=== PATIENT | female | born 1965 | race Caucasian/White ===

== ENCOUNTER 2018-07-13 10:56 | Emergency (ER) | payer MEDICAID ==
[2018-07-13 11:23] VITALS: BP 145/81
--- NOTE | 2018-07-13 12:16 | EDM.PDOC ---
ED HPI GENERAL MEDICAL PROBLEM - General Chief Complaint: Upper Extremity Injury/Pain Stated Complaint: SWOLLEN LEFT HAND Time Seen by Provider: 07/13/18 11:50 Source of Information: Reports: Patient History Limitations: Reports: No Limitations - History of Present Illness INITIAL COMMENTS - FREE TEXT/NARRATIVE: 53-year-old female was walking on the ice one week ago and slipped banging the back of her left hand and wrist on a mirror outside of a vehicle. It seems to be improving but over the last 48 hours has had increased swelling, and now she is having some numbness and tingling with heaviness radiating up the forearm into her upper arm. No further trauma or falls. Onset: Gradual Duration: Day(s): (Symptoms over 7 days) Location: Reports: Upper Extremity, Left Quality: Reports: Ache, Pressure, Other (Heaviness and paresthesias) Associated Symptoms: Reports: No Other Symptoms Left Lower Wrist Pain Score (Numeric/FACES): 5 - Related Data Allergies Allergy/AdvReac Type Severity Reaction Status Date / Time bleach Allergy Rash Uncoded 07/13/18 11:23 Home Meds: Home Meds Ondansetron [Zofran ODT] 4 mg PO Q6H PRN 07/10/15 [History] SUMAtriptan succinate [Sumatriptan Succinate] 50 mg PO ASDIRECTED PRN 07/10/15 [ History] Ibuprofen 600 mg PO Q6H PRN 07/24/15 [History] Gabapentin 400 mg PO QID 10/24/15 [History] Past Medical History HEENT History: Reports: Allergic Rhinitis, Sinusitis 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: Musculoskeletal History: Reports: Back Pain, Chronic Neurological History: Reports: Migraines Endocrine/Metabolic History: Reports: Obesity/BMI 30+ - Past Surgical History Musculoskeletal Surgical History: Reports: Carpal Tunnel, Other (See Below) Social & Family History - Tobacco Use Smoking Status *Q: Current Every Day Smoker Years of Tobacco use: 38 Packs/Tins Daily: 0.5 Second Hand Smoke Exposure: No - Caffeine Use Caffeine Use: Reports: None - Alcohol Use Days Per Week of Alcohol Use: 3 Number of Drinks Per Day: 3 Total Drinks Per Week: 9 - Recreational Drug Use Recreational Drug Use: No Review of Systems - Review of Systems Review Of Systems: See Below Constitutional: Denies: Fever Respiratory: Denies: Shortness of Breath, Hemoptysis Cardiovascular: Denies: Chest Pain GI/Abdominal: Denies: Abdominal Pain Musculoskeletal: Reports: Shoulder Pain, Arm Pain, Hand Pain Skin: Reports: Bruising (Small amount of bruising on the back of her hand, almost completely resolved) Neurological: Reports: Paresthesia (Tingling of the left arm) ED EXAM, GENERAL - Physical Exam Exam: See Below Exam Limited By: No Limitations General Appearance: Alert, No Apparent Distress Respiratory/Chest: No Respiratory Distress, Lungs Clear Extremities: Other (Exam is otherwise limited to the upper extremities. She has full range of motion without pain of the right arm. She does have full range of motion of left arm but abduction and external rotation is stiff and sore. On palpation her left forearm is tender to palpation with increased pain over the wrist, there is no deformity or crepitus. Grasping is painful but full.) Course - Vital Signs Last Recorded V/S: Last Vital Signs Temp 96.5 F 07/13/18 11:25 Pulse 86 07/13/18 11:25 Resp 16 07/13/18 11:25 BP 145/81 H 07/13/18 11:25 Pulse Ox 97 07/13/18 11:25 - Orders/Labs/Meds Orders: Active Orders 24 hr Category Date Time Status Wrist Comp Min 3V Lt [CR] Stat Exams 07/13/18 11:57 Taken DME for Discharge [COMM] Stat Oth 07/13/18 12:20 Ordered - Re-Assessments/Exams Free Text/Narrative Re-Assessment/Exam: 07/13/18 12:15 An x-ray of the left wrist is obtained. 07/13/18 12:20 Wrist x-ray is normal. Patient was placed in a cockup wrist splint to wear for the next several days to rest the nerves of the wrist and forearm. She can increase activity as tolerated after 2 or 3 days, and recheck if not improving satisfactorily. Departure - Departure Time of Disposition: 12:30 Disposition: Home, Self-Care 01 Condition: Good Clinical Impression: Contusion of wrist, left Qualifiers: Encounter type: initial encounter Qualified Code(s): S60.212A - Contusion of left wrist, initial encounter - Discharge Information Instructions: Contusion, [id number] Referrals: Moctezuma,Leslee M, PA-C [Primary Care Provider] - Forms: ED Department Discharge Care Plan Goals: Wear wrist splint for the next 2 or 3 days to rest the nerves in your left hand and wrist. A regular dose of ibuprofen or naproxen would help. Then increase activity with your wrist and arm as tolerated and recheck with your regular doctor in 5-7 days if not improving satisfactorily. - My Orders Last 24 Hours: My Active Orders 07/13/18 11:57 Wrist Comp Min 3V Lt [CR] Stat 07/13/18 12:20 DME for Discharge [COMM] Stat - Assessment/Plan Last 24 Hours: My Active Orders 07/13/18 11:57 Wrist Comp Min 3V Lt [CR] Stat 07/13/18 12:20 DME for Discharge [COMM] Stat
== END 2018-07-13 12:30 | disposition home or self-care (01) ==
LOC: JP.ED 10:56
DX: S60.212A Contusion of left wrist, initial encounter (principal); E66.9 Obesity, unspecified; F17.210 Nicotine dependence, cigarettes, uncomplicated; Z91.048 Other nonmedicinal substance allergy status; W00.0XXA Fall on same level due to ice and snow, initial encounter
CPT/HCPCS: 73110-LT; 99284

== ENCOUNTER 2019-05-29 07:33 | Day surgery (SDC) | payer MEDICAID ==
[~2019-05-29 07:33] MED LIST: Lidocaine 0.5% 50 ML SDV ONE; Lidocaine 1% with EPINEPHrine 1:100,000 50 ML MDV ONE; Midazolam 1 MG/ML 2 ML SDV ONE; Propofol 200 MG/20 ML SDV ONE; fentaNYL 100 MCG/2 ML SDV ONE
[2019-05-29] MEDS ORDERED: Dextrose 5%-Lactated Ringers 1,000 ML IV SCH (08:45)
[2019-05-29] MEDS ORDERED: ceFAZolin 2 GM in Sodium Chloride 0.9% 50 ML IV ONE (09:15)
[2019-05-29] MEDS ORDERED: Ketorolac 60 MG/2 ML SDV ONE (09:58)
[2019-05-29 11:13] VITALS: PULSE 49
[2019-05-29] MEDS ORDERED: Acetaminophen/HYDROcodone 325-5 MG Tab PO ONE (11:14)
[2019-05-29 11:32] VITALS: BP 146/80
--- NOTE | 2019-06-03 10:13 | OR ---
DATE OF PROCEDURE: 05/29/2019 SURGEON: Victoriano Castillo MD PREOPERATIVE DIAGNOSIS: Left carpal tunnel syndrome. POSTOPERATIVE DIAGNOSES: 1. Left carpal tunnel syndrome. 2. Subfascial lipoma within carpal tunnel. PROCEDURE PERFORMED: 1. Left carpal tunnel release (57806). 2. Excision of lipoma located within the carpal tunnel (70662). ANESTHESIA: IV block plus sedation. CUSTOMER CONTACT SALES ASSOCIATE: Richard Man MS-3. INDICATION FOR PROCEDURE: This is a 54-year-old female presenting with left carpal tunnel syndrome. The plan is to proceed with left carpal tunnel release. Potential risks of the procedure including bleeding, infection, injury to the underlying the median nerve and/or its branches, and possible incomplete relief of symptoms were all reviewed, and the patient wishes to proceed. DETAILS OF PROCEDURE: The patient was taken to the operating room and placed in a supine position. An IV block was placed affecting the left forearm and hand after which the patient received some IV sedation performed and was then prepped and draped. A standard carpal tunnel incision was made and carried down through the skin and subcutaneous tissue. The transverse carpal ligament was then divided maintaining ulnar orientation with regard to the underlying median nerve. This extended on to the palm of the hand until there was complete release of pressure on the median nerve. There was quite a bit of tension on the nerve, and the transverse carpal ligament then retracted considerably upon its division. A 1.2 cm lipoma was located within the carpal tunnel as well. This was excised and at that point no further problems were noted. The incision was closed with 4-0 Vicryl stitch deep and then a 5-0 Prolene skin stitch. Dressing was applied. The patient was taken to the recovery room in satisfactory condition. There were no evident complications. Victoriano Castillo MD /[id number]
== END 2019-05-29 11:50 | disposition home or self-care (01) ==
LOC: JP.SDS 07:33
PROVIDERS: ATTEND Surgery
DX: G56.02 Carpal tunnel syndrome, left upper limb (principal); D17.22 Benign lipomatous neoplasm of skin and subcutaneous tissue of left arm; F17.210 Nicotine dependence, cigarettes, uncomplicated
CPT/HCPCS: 25076; 64721; A9270; J0690; J1885; J2001; J2250; J2704; J3010; J7042; J7050; 88304; J7121

== ENCOUNTER 2020-03-13 19:51 | Emergency (ER) | payer MEDICAID ==
[2020-03-13] MEDS ORDERED: Sodium Chloride 0.9% 10 ML Syringe FLUSH PRN (19:52)
[2020-03-13] MEDS ORDERED: Aspirin 81 MG Tab.Chew PO ONE (19:52)
[2020-03-13] MEDS ORDERED: Nitroglycerin 0.4 MG Tab.SL SL PRN (19:52)
--- NOTE | 2020-03-13 19:54 | EDM.PDOC ---
ED HPI GENERAL MEDICAL PROBLEM - General Stated Complaint: CHEST PAINS Time Seen by Provider: 03/13/20 19:52 Source of Information: Reports: Patient, RN Notes Reviewed History Limitations: Reports: No Limitations - History of Present Illness INITIAL COMMENTS - FREE TEXT/NARRATIVE: 55-year-old female presents emergency department today complaint of right-sided chest pain she states started 1 hour prior she is very diaphoretic she feels short of breath with new onset of nausea and vomiting she has no known heart history does use tobacco products daily - Related Data Allergies Allergy/AdvReac Type Severity Reaction Status Date / Time bleach Allergy Rash Uncoded 03/13/20 19:53 Home Meds: Home Meds SUMAtriptan succinate [Sumatriptan Succinate] 50 mg PO ASDIRECTED PRN 07/10/15 [History] Gabapentin 300 mg PO TID 10/24/15 [History] Acetaminop/Dichlphn/Isomethept [Midrin 325-100-65 MG] 1 cap PO Q4H PRN 05/27/19 [History] Celecoxib [CeleBREX] 200 mg PO BID 05/27/19 [History] Clindamycin Phosphate [Cleocin T 1% Lotion] 1 applic TOP BID 05/27/19 [History] Past Medical History HEENT History: Reports: Allergic Rhinitis, Sinusitis 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: Musculoskeletal History: Reports: Back Pain, Chronic, Fracture Neurological History: Reports: Migraines Endocrine/Metabolic History: Reports: Obesity/BMI 30+ - Infectious Disease History Infectious Disease History: Reports: Chicken Pox - Past Surgical History HEENT Surgical History: Reports: None Endocrine Surgical History: Reports: None Neurological Surgical History: Reports: Lumbar Spine Musculoskeletal Surgical History: Reports: Carpal Tunnel, Other (See Below) Social & Family History - Tobacco Use Smoking Status *Q: Current Every Day Smoker - Caffeine Use Caffeine Use: Reports: None ED ROS GENERAL - Review of Systems Review Of Systems: See Below Constitutional: Reports: Diaphoresis HEENT: Reports: No Symptoms Respiratory: Reports: Shortness of Breath Cardiovascular: Reports: Chest Pain, Dyspnea on Exertion GI/Abdominal: Reports: Nausea, Vomiting ED EXAM, GENERAL - Physical Exam Exam: See Below Exam Limited By: No Limitations General Appearance: Alert, Mild Distress Respiratory/Chest: No Respiratory Distress, Lungs Clear, Normal Breath Sounds, No Accessory Muscle Use, Chest Non-Tender Cardiovascular: Regular Rate, Rhythm, No Murmur GI/Abdominal: Soft, Non-Tender Course - Orders/Labs/Meds Orders: Active Orders 24 hr Category Date Time Status Cardiac Monitoring [RC] .As Directed Care 03/13/20 19:52 Active EKG Documentation Completion [RC] ASDIRECTED Care 03/13/20 19:53 Active Peripheral IV Care [RC] . DIRECTED Care 03/13/20 19:53 Active Chest 1V Frontal [CR] Stat Exams 03/13/20 19:52 Ordered COMPREHENSIVE METABOLIC PN,CMP [CHEM] Stat Lab 03/13/20 19:58 Received INR,PT,PROTHROMBIN TIME [COAG] Stat Lab 03/13/20 19:58 Received PTT,PARTIAL THROMBOPLSTIN TIME [COAG] Stat Lab 03/13/20 19:58 Received TROPONIN I [CHEM] Stat Lab 03/13/20 19:58 Received Morphine Med 03/13/20 19:52 Active 4 mg IVPUSH Q10M PRN Nitroglycerin [Nitrostat] Med 03/13/20 19:52 Active 0.4 mg SL Q5M PRN Sodium Chloride 0.9% [Saline Flush] Med 03/13/20 19:52 Active 10 ml FLUSH ASDIRECTED PRN Peripheral IV Insertion Adult [OM.PC] Stat Oth 03/13/20 19:52 Ordered Saline Lock Insert [OM.PC] Stat Oth 03/13/20 19:52 Ordered EKG 12 Lead [EK] Stat Ther 03/13/20 19:52 Ordered Medication Orders Morphine Sulfate (Morphine) 4 mg IVPUSH Q10M PRN PRN Reason: Chest Pain Stop: 03/14/20 19:52 Last Admin: 03/13/20 20:07 Dose: 4 mg Documented by: GREG Nitroglycerin (Nitrostat) 0.4 mg SL Q5M PRN PRN Reason: Chest Pain Stop: 03/14/20 19:52 Sodium Chloride (Saline Flush) 10 ml FLUSH ASDIRECTED PRN PRN Reason: Keep Vein Open Last Admin: 03/13/20 20:08 Dose: 10 ml Documented by: GREG Labs: Laboratory Tests 03/13/20 Range/Units 19:58 WBC 14.6 H (4.5-11.0) K/uL RBC 4.28 (3.30-5.50) M/uL Hgb 12.9 D (12.0-15.0) g/dL Hct 38.6 (36.0-48.0) % MCV 90 (80-98) fL MCH 30 (27-31) pg MCHC 33 (32-36) % Plt Count 269 (150-400) K/uL Neut % (Auto) 43 (36-66) % Lymph % (Auto) 51 H (24-44) % [facility] % (Auto) 5 (2-6) % Eos % (Auto) 1 L (2-4) % Baso % (Auto) 0 (0-1) % Meds: Medications Generic Name Dose Route Start Last Admin Trade Name Freq PRN Reason Stop Dose Admin Morphine Sulfate 4 mg 03/13/20 19:52 03/13/20 20:07 Morphine IVPUSH 03/14/20 19:52 4 mg Q10M PRN Administration Chest Pain Nitroglycerin 0.4 mg 03/13/20 19:52 Nitrostat SL 03/14/20 19:52 Q5M PRN Chest Pain Sodium Chloride 10 ml 03/13/20 19:52 03/13/20 20:08 Saline Flush FLUSH 10 ml ASDIRECTED PRN Administration Keep Vein Open Discontinued Medications Generic Name Dose Route Start Last Admin Trade Name Freq PRN Reason Stop Dose Admin Aspirin 324 mg 03/13/20 19:52 03/13/20 20:05 Aspirin PO 03/13/20 19:53 324 mg ONETIME ONE Administration Ondansetron HCl Confirm 03/13/20 20:00 Zofran Administered 03/13/20 20:01 Dose 4 mg .ROUTE .STK-MED ONE Ondansetron HCl 4 mg 03/13/20 20:01 03/13/20 20:08 Zofran IVPUSH 03/13/20 20:02 4 mg ONETIME ONE Administration Departure - Departure Time of Disposition: 20:12 Disposition: DC/Tfer to Acute Hospital 02 Reason for Transfer *Q: Primary PCI Indicated Condition: Fair Clinical Impression: ST elevation myocardial infarction (STEMI) of inferior wall Referrals: PCP,None [Primary Care Provider] - - My Orders Last 24 Hours: My Active Orders 03/13/20 19:52 Cardiac Monitoring [RC] .As Directed Chest 1V Frontal [CR] Stat Morphine 4 mg IVPUSH Q10M PRN Nitroglycerin [Nitrostat] 0.4 mg SL Q5M PRN Sodium Chloride 0.9% [Saline Flush] 10 ml FLUSH ASDIRECTED PRN Peripheral IV Insertion Adult [OM.PC] Stat Saline Lock Insert [OM.PC] Stat EKG 12 Lead [EK] Stat 03/13/20 19:53 EKG Documentation Completion [RC] ASDIRECTED Peripheral IV Care [RC] . DIRECTED 03/13/20 19:58 COMPREHENSIVE METABOLIC PN,CMP [CHEM] Stat INR,PT,PROTHROMBIN TIME [COAG] Stat PTT,PARTIAL THROMBOPLSTIN TIME [COAG] Stat TROPONIN I [CHEM] Stat - Assessment/Plan Last 24 Hours: My Active Orders 03/13/20 19:52 Cardiac Monitoring [RC] .As Directed Chest 1V Frontal [CR] Stat Morphine 4 mg IVPUSH Q10M PRN Nitroglycerin [Nitrostat] 0.4 mg SL Q5M PRN Sodium Chloride 0.9% [Saline Flush] 10 ml FLUSH ASDIRECTED PRN Peripheral IV Insertion Adult [OM.PC] Stat Saline Lock Insert [OM.PC] Stat EKG 12 Lead [EK] Stat 03/13/20 19:53 EKG Documentation Completion [RC] ASDIRECTED Peripheral IV Care [RC] . DIRECTED 03/13/20 19:58 COMPREHENSIVE METABOLIC PN,CMP [CHEM] Stat INR,PT,PROTHROMBIN TIME [COAG] Stat PTT,PARTIAL THROMBOPLSTIN TIME [COAG] Stat TROPONIN I [CHEM] Stat Plan: Assessment Acuity = acute Site and laterality = ST elevation myocardial infarction inferior leads Etiology = probable underlying coronary artery disease Manifestations = none Location of injury = Home Lab values = EKG demonstrates ST elevations in leads II, III and aVF with reciprocal depressions in V1 V2 lab work is pending Plan Thus far she has received 4000 unit bolus of heparin 180 mg Brilinta 325 mg aspirin 4 mg morphine no nitro was provided she will be transported via EMS ground, did receive acceptance from Dr. Vo marine driller [facility], will be transferred with a heparin drip in route This note was dictated using [employer] voice recognition software please call with any questions on syntax or grammar.
[2020-03-13] MEDS ORDERED: Ondansetron 4 MG/2 ML SDV ONE (20:00)
[2020-03-13] MEDS ORDERED: Ondansetron 4 MG/2 ML SDV IVPUSH ONE (20:01)
[2020-03-13] MEDS: Morphine 4 MG/ML Syringe IVPUSH PRN ×2 (20:07→20:12)
[2020-03-13] MEDS ORDERED: Heparin Sodium 5,000 Units/ML Vial IVPUSH ONE (20:14)
[2020-03-13] MEDS ORDERED: Ticagrelor 90 MG Tab PO ONE (20:14)
[2020-03-13] MEDS ORDERED: Sodium Chloride 0.9% 1,000 ML IV SCH (20:15)
[2020-03-13] MEDS ORDERED: fentaNYL 100 MCG/2 ML SDV IVPUSH ONE (20:15)
[2020-03-13] MEDS ORDERED: Heparin Sodium/D5W 25,000 UNITS/500 ML BAG IV SCH (20:15)
[2020-03-13] MEDS ORDERED: Heparin Sodium/D5W 500 ML ONE (20:19)
[2020-03-13 21:05] VITALS: BP 129/104
[2020-03-13 23:35] VITALS: PULSE 82
== END 2020-03-13 20:30 ==
LOC: JP.ED 19:51
DX: I21.19 ST elevation (STEMI) myocardial infarction involving other coronary artery of inferior wall (principal); E66.9 Obesity, unspecified; Z68.32 Body mass index [BMI] 32.0-32.9, adult; F17.200 Nicotine dependence, unspecified, uncomplicated; Z79.899 Other long term (current) drug therapy; Z91.048 Other nonmedicinal substance allergy status
CPT/HCPCS: 36415; 80053; 84484; 85025; 85610; 85730; 93005; 93010; 96374; 96375; 99285; A9270; J1644; J2270; J2405; J3010; J7030

== ENCOUNTER 2020-05-10 10:37 | Emergency (ER) | payer MEDICAID ==
[2020-05-10 10:53] VITALS: BP 155/78; PULSE 68
--- NOTE | 2020-05-10 12:01 | EDM.PDOC ---
ED HPI GENERAL MEDICAL PROBLEM - General Chief Complaint: Respiratory Problem Stated Complaint: SOB Time Seen by Provider: 05/10/20 11:45 Source of Information: Reports: Patient History Limitations: Reports: No Limitations - History of Present Illness INITIAL COMMENTS - FREE TEXT/NARRATIVE: 55-year-old female who had an KS 2 months ago, since her discharge has had persistent shortness of breath. It seems worse with activity. She thought she should be improving by now, so called the clinic for assessment and they told her to come to the emergency room because she "might have Covid". She has no fevers or chills, mild dry cough. Denies nausea or vomiting. Onset: Gradual Duration: Week(s): (Symptoms have been ongoing for the last 6 to 8 weeks since her treatment for myocardial infarction) - Related Data Allergies Allergy/AdvReac Type Severity Reaction Status Date / Time bleach Allergy Rash Uncoded 05/10/20 11:00 Home Meds: Home Meds SUMAtriptan succinate [Sumatriptan Succinate] 50 mg PO ASDIRECTED PRN 07/10/15 [History] Gabapentin 300 mg PO TID 10/24/15 [History] Acetaminop/Dichlphn/Isomethept [Midrin 325-100-65 MG] 1 cap PO Q4H PRN 05/27/19 [History] Clindamycin Phosphate [Cleocin T 1% Lotion] 1 applic TOP BID 05/27/19 [History] Aspirin 81 mg PO DAILY 05/10/20 [History] Metoprolol Succinate [Toprol XL] 25 mg PO DAILY 05/10/20 [History] Pantoprazole Sodium [Protonix] 40 mg PO DAILY 05/10/20 [History] Ticagrelor [Brilinta] 90 mg PO DAILY 05/10/20 [History] atorvaSTATin [Lipitor] 80 mg PO BEDTIME 05/10/20 [History] lisinopriL [Prinivil] 2.5 mg PO DAILY 05/10/20 [History] tiZANidine 2 mg PO BID PRN 05/10/20 [History] Past Medical History HEENT History: Reports: Allergic Rhinitis, Sinusitis Cardiovascular History: Reports: High Cholesterol, Hypertension, [place]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: Musculoskeletal History: Reports: Back Pain, Chronic, Fracture Neurological History: Reports: Migraines Endocrine/Metabolic History: Reports: Obesity/BMI 30+ - Infectious Disease History Infectious Disease History: Reports: Chicken Pox - Past Surgical History Cardiovascular Surgical History: Reports: Coronary Artery Stent Neurological Surgical History: Reports: Lumbar Spine Musculoskeletal Surgical History: Reports: Carpal Tunnel, Other (See Below) Other Musculoskeletal Surgeries/Procedures:: right carpal tunnel Social & Family History - Tobacco Use Tobacco Use Status *Q: Current Every Day Tobacco User Years of Tobacco use: 40 Packs/Tins Daily: 0.2 - Caffeine Use Caffeine Use: Reports: None - Recreational Drug Use Recreational Drug Use: No ED ROS GENERAL - Review of Systems Review Of Systems: See Below Constitutional: Reports: Malaise. Denies: Fever, Chills Respiratory: Reports: Shortness of Breath (Especially with activity) Cardiovascular: Denies: Chest Pain GI/Abdominal: Reports: No Symptoms Musculoskeletal: Reports: No Symptoms Skin: Reports: No Symptoms Neurological: Denies: Headache ED EXAM, GENERAL - Physical Exam Exam: See Below Exam Limited By: No Limitations General Appearance: Alert, No Apparent Distress Head: Atraumatic Respiratory/Chest: No Respiratory Distress, Other (She does have basilar crackles bilaterally posteriorly, otherwise lungs are clear) Cardiovascular: Regular Rate, Rhythm Extremities: Normal Inspection. No: Pedal Edema Neurological: Alert, Oriented Psychiatric: Normal Affect, Normal Mood Skin Exam: Warm, Dry Course - Vital Signs Last Recorded V/S: Last Vital Signs Temp 96.7 F L 05/10/20 11:09 Pulse 68 05/10/20 11:09 Resp 18 05/10/20 11:09 BP 155/78 H 05/10/20 11:09 Pulse Ox 99 05/10/20 11:09 - Orders/Labs/Meds Orders: Active Orders 24 hr Category Date Time Status CORONAVIRUS COVID-19, VANESSA Stat Lab 05/10/20 12:08 Received - Re-Assessments/Exams Free Text/Narrative Re-Assessment/Exam: 05/10/20 12:00 A 2 view chest x-ray was obtained. Breathing is nonlabored and O2 saturations 99% on room air. 05/10/20 12:09 2 view chest x-ray is normal. A coronavirus was obtained and patient will be informed in 2 to 3 days. She was also given an albuterol HFA inhaler to use as needed for shortness of breath or wheezing which she thinks is worse at night. She can recheck in the next 5 to 10 days if not improving. Departure - Departure Time of Disposition: 12:35 Disposition: Home, Self-Care 01 Clinical Impression: Shortness of breath - Discharge Information Instructions: Shortness of Breath, Adult, [id number] Referrals: Leslee Moctezuma PA-C [Primary Care Provider] - Forms: ED Department Discharge Care Plan Goals: Your Covid test will be available in the next couple of days. Use inhaler as directed, and increase activity as tolerated. Continue to try to decrease smoking, and return anytime if worsening despite inhaler treatment Sepsis Event Note (ED) - Evaluation Sepsis Screening Result: No Definite Risk - Focused Exam Vital Signs: Vital Signs Temp Pulse Resp BP Pulse Ox 05/10/20 11:09 96.7 F L 68 18 155/78 H 99 05/10/20 10:50 96.7 F L 68 18 155/78 H 99 - My Orders Last 24 Hours: My Active Orders 05/10/20 12:08 CORONAVIRUS COVID-19, VANESSA Stat - Assessment/Plan Last 24 Hours: My Active Orders 05/10/20 12:08 CORONAVIRUS COVID-19, VANESSA Stat
--- NOTE | 2020-05-10 12:50 | CR ---
CHEST: 2 view CLINICAL HISTORY:Dyspnea COMPARISON:None FINDINGS: The heart size, pulmonary vascularity and hilar structures are normal. No infiltrate effusion or pneumothorax is seen. IMPRESSION: No acute cardiopulmonary process.
== END 2020-05-10 12:35 | disposition home or self-care (01) ==
LOC: JP.ED 10:37
DX: R06.02 Shortness of breath (principal); I10 Essential (primary) hypertension; E78.00 Pure hypercholesterolemia, unspecified; I25.2 Old myocardial infarction; E66.9 Obesity, unspecified; G43.909 Migraine, unspecified, not intractable, without status migrainosus; F17.210 Nicotine dependence, cigarettes, uncomplicated; Z95.5 Presence of coronary angioplasty implant and graft; Z91.09 Other allergy status, other than to drugs and biological substances; Z79.82 Long term (current) use of aspirin; Z79.899 Other long term (current) drug therapy; Z68.33 Body mass index [BMI] 33.0-33.9, adult; Z20.828 Contact with and (suspected) exposure to other viral communicable diseases
CPT/HCPCS: 71046; 71046-26; 99285-25; U0002

== ENCOUNTER 2020-08-05 05:22 | Day surgery (SDC) | payer MEDICAID ==
[2020-08-05] MEDS ORDERED: Propofol 200 MG/20 ML SDV ONE ×2 (07:09→07:27)
[2020-08-05] MEDS ORDERED: Midazolam 1 MG/ML 2 ML SDV ONE (07:09)
[2020-08-05] MEDS ORDERED: fentaNYL 100 MCG/2 ML SDV ONE (07:09)
[2020-08-05] MEDS ORDERED: Dextrose 5%-Lactated Ringers 1,000 ML IV SCH (08:30)
[2020-08-05 08:36] VITALS: BP 133/77; PULSE 53
[2020-08-05] MEDS ORDERED: Iopamidol 612 MG/ML 100 ML Bottle IV PRN (08:51)
[2020-08-05] MEDS ORDERED: Sodium Chloride 0.9% 10 ML Syringe FLUSH PRN (08:51)
[2020-08-05] MEDS ORDERED: Sodium Chloride 0.9% 75 ML IV ONE (08:51)
--- NOTE | 2020-08-05 11:39 | CT ---
Chest Abdomen Pelvis w Cont CLINICAL HISTORY: Rectal carcinoma TECHNIQUE: Transverse scans were obtained from the thoracic inlet to the lung bases with IV contrast. Auto dose reduction and iterative reconstruction techniques were employed COMPARISONS: None FINDINGS: Lung window images show numerous small noncalcified pulmonary nodules bilaterally most notable in the right lung. Largest in the upper lobe measures 5 and 6 mm on images #23 and #24. Soft tissue window images show some lymph nodes in the mediastinum. Largest in the aortopulmonary window measures [address] ABDOMEN AND PEVIS WITH IV CONTRAST COMPARISON: None TECHNIQUE: Axial tomographic images are obtained from the dome of the diaphragm to the iliac crest with IV contrast enhancement. Oral contrast was used. FINDINGS: The livercontains a 2.5 x 3.3 x 3.0 cm low-attenuation nodule with some irregular predominantly peripheral enhancement. There is a vague nodular focus in the posterior segment of the right lobe measuring 1.9 x 1.9 cm. There is also the impression of some peripheral enhancement. The gallbladder has a normal contour. The spleen has a normal size and shape. The pancreas shows no mass or inflammatory change. The adrenal glands appear normal bilaterally. There is a 2.5 cm well demarcated low-attenuation lesion in the medial aspect of the right kidney. Density measurement is nonspecific and postcontrast scan. As the 1.8 x 1.2 cm low-attenuation focus in the midpole of the left kidney likely of similar etiology. No stones are seen. The ureters have a normal course and caliber. The bladder has a normal contour. There is a 5.2 x 4.5 x 4.6 cm heterogeneous eccentric low-attenuation mass on the upper uterus. This is felt to represent a subserosal fibroid. There is a 2.7 x 1.8 cm low-attenuation focus contiguous with the right adnexal region. There is some soft tissue fullness measuring approximately 2.7 cm contiguous with both the left lateral margin of the uterus and adnexa region. This could be a hemorrhagic cyst or possibly a another fibroid. The small intestinal configuration is nonacute. There is some colonic diverticulosis. Patient has undergone recent colonoscopy were cancerous lesion was discovered in the rectum just above the renal virtual. This is not definitively identified on CT. The perirectal fat planes appear well preserved. There has been previous lower lumbar laminectomies with fixation from L4 through S1. IMPRESSION: Multiple small noncalcified pulmonary nodules right greater than left. Considering the patient's history of rectal carcinoma metastatic nodules cannot be excluded. These are too small to be reliably identified on PET scan. Two heterogeneous hypodense nodules in the liver described above. There appears to be some peripheral enhancement. These may represent hepatic hemangiomas but again, considering the history metastatic lesions are not excluded and further investigation is warranted. Ultrasound should be considered first. MRI or CT using hemangioma protocol should also be performed. Nodular foci contiguous to the uterus are felt to represent subserosal fibroids. This should also be correlated with pelvic ultrasound Previous lumbar surgery
--- NOTE | 2020-08-14 15:13 | OR ---
DATE OF PROCEDURE: 08/05/2020 SURGEON: Victoriano Castillo MD PREOPERATIVE DIAGNOSIS: Recent rectal bleeding. POSTOPERATIVE DIAGNOSES: 1. 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 2. Left colonic diverticulosis. OPERATIVE PROCEDURE: Flexible colonoscopy with biopsies of rectal mass. ANESTHESIA: IV sedation. INDICATION FOR PROCEDURE: This is a 55-year-old presenting with some recent problems with rectal bleeding. The plan is to do proceed with a colonoscopy with biopsies and a polypectomy as indicated. Potential risks of the procedure including bleeding and perforation were discussed, and the patient wishes to proceed. DETAILS OF PROCEDURE: The patient was taken to the operating room and placed in a left lateral decubitus position. IV sedation was administered, after which the initial digital rectal exam identified a firm mass, this measured about 4 cm and with a flat polypoid lesion, which was completely sessile, it had quite friable surface. It appeared to be not mobile within the mucosa i.e. had features suggestive of fixation to more invasion into the underlying musculature. No active bleeding was seen from the mass. The lower end of the mass extended within around 2 mm of the dentate line i.e. more or less the anal canal. The location otherwise would be suggestive this being a rectal adenocarcinoma versus an anal canal tumor, but histology will be awaited for that final conclusion. The scope was then eventually passed to the level of the cecum. The prep was quite good. Apart from the low rectal carcinoma, the patient had a limited amount of left uncomplicated diverticulosis. Remainder of the examination was unremarkable. The prep was very good. The scope was then withdrawn. At that point, multiple biopsies were taken from the rectal mass and sent for histologic evaluation, but no bleeding from the biopsy sites was seen, and the procedure then concluded. At this point, we will begin the patient to work up with a CBC, CMP, baseline BNP, and a CEA. We will also then obtain a CT scan of the chest, abdomen, and pelvis with IV contrast; and on Saturday and Saturday of next week, obtain an MRI of the abdomen and pelvis. The abdominal MRI could be done here at [facility], which is the nearest place for an appropriate staging MRI for rectal mass. Could only do the pelvis on Saturday, that will be scheduled there, and we will see the patient back on Saturday to put things into an overall package and likely set it up for Medical Oncology at that point. Based on the patient's likelihood of this being an adenocarcinoma and the probable fixation of the muscle. This is clinically most likely at least 2 to 3 lesions despite being relatively small in overall size, and the case would require preoperative neoadjuvant chemoradiation, and despite that we would most likely eventually need an abdominoperineal resection due to the very low nature of the lesion. Victoriano Castillo MD /[id number]
== END 2020-08-05 10:45 | disposition home or self-care (01) ==
LOC: JP.SDS 05:22
PROVIDERS: ATTEND Surgery
DX: C20 Malignant neoplasm of rectum (principal); K57.31 Diverticulosis of large intestine without perforation or abscess with bleeding; I25.10 Atherosclerotic heart disease of native coronary artery without angina pectoris; Z91.048 Other nonmedicinal substance allergy status; Z95.5 Presence of coronary angioplasty implant and graft
CPT/HCPCS: 36415; 45380; 71260; 74177; 80053; 82378; 83880; 85027; 88305; J2250; J2704; J3010; J7121; Q9967

== ENCOUNTER 2020-12-21 11:46 | Inpatient (IN) | payer MEDICAID ==
[~2020-12-21 11:46] MED LIST changes: +Albuterol/Ipratropium 3.0-0.5 MG/3 ML Neb Soln NEB ONE; +Bupivacaine 0.5% 50 ML MDV ONE; +Dexamethasone 4 MG/ML SDV ONE; +Dextrose 5%-Lactated Ringers 1,000 ML IV SCH; +Gabapentin 300 MG Cap PO ONE; +Glycopyrrolate 0.2 MG/ML 5 ML MDV ONE; -Lidocaine 0.5% 50 ML SDV ONE; +Meropenem 500 MG SDV ONE; -Midazolam 1 MG/ML 2 ML SDV ONE; +Naloxone 0.4 MG/ML SDV IVPUSH PRN; +Neostigmine Methylsulfate 1 MG/ML 5 ML Syringe ONE; +Ondansetron 4 MG/2 ML SDV ONE; +Rocuronium 50 MG/5 ML Vial ONE; +Scopolamine 1.5 MG Transdermal Patch TOP ONE; +Succinylcholine 200 MG/10 ML MDV ONE; +cefOXitin 2 GM in Sodium Chloride 0.9% 50 ML IV ONE; -fentaNYL 100 MCG/2 ML SDV ONE; +fentaNYL 2,500 MCG in Sodium Chloride 0.9% 200 ML EPIDUR SCH; +fentaNYL 250 MCG/5 ML SDV ONE
[2020-12-21] MEDS ORDERED: Naloxone 0.4 MG/ML SDV IVPUSH PRN (12:00)
[2020-12-21] MEDS ORDERED: fentaNYL 2,500 MCG in Sodium Chloride 0.9% 200 ML EPIDUR SCH (12:00)
[2020-12-21] MEDS ORDERED: Scopolamine 1.5 MG Transdermal Patch TOP SCH (12:45)
[2020-12-21] MEDS ORDERED: Gabapentin 300 MG Cap PO ONE (12:45)
[2020-12-21] MEDS: Dextrose 5%-Lactated Ringers 1,000 ML IV SCH (13:05)
[2020-12-21] MEDS ORDERED: Albuterol/Ipratropium 3.0-0.5 MG/3 ML Neb Soln NEB ONE (13:30)
[2020-12-21] MEDS ORDERED: Formoterol/Mometasone 100-5 MCG 8.8 GM Inhaler IH ONE (13:30)
[2020-12-21] MEDS ORDERED: cefOXitin 2 GM in Sodium Chloride 0.9% 50 ML IV ONE (14:00)
[2020-12-21] MEDS ORDERED: Sodium Chloride 0.9% 10 ML ONE (14:02)
[2020-12-21] MEDS ORDERED: Rocuronium 50 MG/5 ML Vial ONE ×2 (14:14→17:09)
[2020-12-21] MEDS ORDERED: Lactated Ringers 1,000 ML ONE ×3 (14:41→17:46)
[2020-12-21] MEDS ORDERED: Fluorescein 5 ML Vial ONE (15:44)
[2020-12-21] MEDS ORDERED: fentaNYL 250 MCG/5 ML SDV ONE (15:57)
[2020-12-21] MEDS ORDERED: Meropenem 500 MG SDV ONE (16:42)
[2020-12-21] MEDS ORDERED: Furosemide 20 MG/2 ML VIAL ONE (16:53)
[2020-12-21] MEDS ORDERED: fentaNYL 100 MCG/2 ML SDV ONE (18:14)
[2020-12-21] MEDS ORDERED: Albuterol/Ipratropium 3.0-0.5 MG/3 ML Neb Soln INH PRN (19:33)
[2020-12-21] MEDS ORDERED: Nitroglycerin 0.4 MG Tab.SL SL PRN (19:43)
[2020-12-21] MEDS: Pantoprazole 40 MG Vial IVPUSH SCH (19:54)
[2020-12-21] MEDS: cefOXitin 2 GM in Sodium Chloride 0.9% 50 ML IV SCH (19:55)
[2020-12-21] MEDS ORDERED: Cyclobenzaprine 10 MG Tab PO PRN (20:00)
[2020-12-21] MEDS ORDERED: hydrOXYzine HCL 100 MG/2 ML SDV IM PRN (20:00)
[2020-12-21] MEDS: Gabapentin 300 MG Cap PO SCH (20:42)
[2020-12-21] MEDS ORDERED: Lisinopril 5 MG Tab ONE (20:47)
[2020-12-21] MEDS ORDERED: Formoterol/Mometasone 100-5 MCG 8.8 GM Inhaler IH SCH (21:00)
[2020-12-21] MEDS: Albuterol/Ipratropium 3.0-0.5 MG/3 ML Neb Soln INH SCH (22:12)
[2020-12-21] MEDS: traZODone 50 MG Tab PO SCH (22:12)
[2020-12-21] MEDS: Lisinopril 2.5 MG Tab PO SCH (22:12)
[2020-12-21] MEDS: Lactated Ringers 1,000 ML IV SCH (23:19)
[2020-12-22] MEDS: cefOXitin 2 GM in Sodium Chloride 0.9% 50 ML IV SCH ×4 (02:20→21:19)
[2020-12-22] MEDS: Ondansetron 4 MG/2 ML SDV IVPUSH PRN (06:27)
[2020-12-22] MEDS ORDERED: Lactated Ringers 1,000 ML IV ONE ×2 (07:00→07:15)
[2020-12-22] MEDS: Albuterol/Ipratropium 3.0-0.5 MG/3 ML Neb Soln INH SCH ×4 (07:05→20:54)
[2020-12-22] MEDS: Formoterol/Mometasone 100-5 MCG 8.8 GM Inhaler IH SCH ×2 (07:33→20:48)
[2020-12-22] MEDS ORDERED: diphenhydrAMINE 50 MG/ML SDV IVPUSH PRN (08:00)
[2020-12-22] MEDS ORDERED: Naloxone 0.4 MG/ML SDV IV PRN (08:00)
[2020-12-22] MEDS: Gabapentin 300 MG Cap PO SCH ×3 (08:25→20:49)
[2020-12-22] MEDS: Metoprolol Succinate 25 MG Tab.ER PO SCH (08:25)
[2020-12-22] MEDS: Magnesium Sulfate/Water 2 GM/50 ML BAG IV SCH ×3 (08:26→19:00)
[2020-12-22] MEDS: Lactated Ringers 1,000 ML IV SCH (10:36)
[2020-12-22] MEDS: Dextrose 5%-Lactated Ringers 1,000 ML IV SCH (16:33)
[2020-12-22] MEDS: atorvaSTATin 20 MG Tab PO SCH (20:50)
[2020-12-22] MEDS: Pantoprazole 40 MG Vial IVPUSH SCH (21:15)
[2020-12-22] MEDS: Lisinopril 2.5 MG Tab PO SCH ×2 (21:16→21:23)
[2020-12-22] MEDS: traZODone 50 MG Tab PO SCH (21:24)
[2020-12-23] MEDS: Magnesium Sulfate/Water 2 GM/50 ML BAG IV SCH ×2 (00:30→06:30)
[2020-12-23] MEDS: Dextrose 5%-Lactated Ringers 1,000 ML IV SCH (02:37)
[2020-12-23] MEDS: Lactated Ringers 1,000 ML IV SCH ×3 (02:37→21:28)
[2020-12-23] MEDS: cefOXitin 2 GM in Sodium Chloride 0.9% 50 ML IV SCH ×3 (02:37→13:46)
[2020-12-23] MEDS: Albuterol/Ipratropium 3.0-0.5 MG/3 ML Neb Soln INH SCH ×4 (07:06→20:26)
[2020-12-23] MEDS: Formoterol/Mometasone 100-5 MCG 8.8 GM Inhaler IH SCH ×2 (07:06→20:25)
[2020-12-23] MEDS ORDERED: Bupivacaine 0.5% 50 ML MDV ONE (07:47)
[2020-12-23] MEDS ORDERED: Lidocaine 1% with EPINEPHrine 1:100,000 50 ML MDV ONE (07:47)
[2020-12-23] MEDS ORDERED: Meropenem 500 MG SDV ONE (07:47)
[2020-12-23] MEDS ORDERED: Propofol 200 MG/20 ML SDV ONE ×2 (09:00→09:23)
[2020-12-23] MEDS: Metoprolol Succinate 25 MG Tab.ER PO SCH (10:10)
[2020-12-23] MEDS: Acetaminophen/HYDROcodone 325-5 MG Tab PO PRN ×3 (11:10→15:48)
[2020-12-23] MEDS: Gabapentin 300 MG Cap PO SCH ×3 (11:11→20:26)
--- NOTE | 2020-12-23 11:31 | PCM.CONS ---
H&P History of Present Illness - General Date of Service: 12/23/20 Admit Problem/Dx: Admission Diagnosis/Problem Admission Diagnosis/Problem Colostomy Source of Information: Patient, RN History Limitations: Reports: No Limitations - History of Present Illness Initial Comments - Free Text/Narative: CC: I'm hungry but I want to puke HPI: Carey was admitted a couple of days ago for surgical management of a low rectal carcinoma. She underwent resection of this cancer along with a total abdominal hysterectomy and had a colostomy formed. She had a delayed primary closure today. I was asked to see her regarding medical management with elevated magnesium, mildly elevated BNP and low normal blood pressures. The patient has just returned from her delayed primary closure and is a little bit sleepy with the pain medications though she does a good job with history. She reports 7 out of 10 generalized abdominal pain that is a combination of sharp and achy. Moving makes the pain worse. Pain medications help some. She is not sure if the pain is any better today than yesterday. She feels nauseated but also feels hungry. No report of chest pain or shortness of breath. She is passing some gas. No lower extremity edema. Low-grade fever overnight. Headache Pain Score (Numeric/FACES): 2 Abdominal Pain Score (Numeric/FACES): 2 - Related Data Allergies/Adverse Reactions: Allergies Allergy/AdvReac Type Severity Reaction Status Date / Time bleach Allergy Rash Uncoded 12/21/20 12:15 Home Medications: Home Meds Gabapentin 300 mg PO TID 10/24/15 [History] Aspirin 81 mg PO DAILY 05/10/20 [History] Metoprolol Succinate [Toprol XL] 12.5 mg PO DAILY 05/10/20 [History] Ticagrelor [Brilinta] 90 mg PO BID 05/10/20 [History] atorvaSTATin [Lipitor] 80 mg PO BEDTIME 05/10/20 [History] lisinopriL [Prinivil] 2.5 mg PO BEDTIME 05/10/20 [History] tiZANidine 4 mg PO TID PRN 05/10/20 [History] Albuterol Sulfate [Albuterol Sulfate Hfa] 1 - 2 puff IH Q4H PRN 08/03/20 [History] Fluticasone/Salmeterol [Advair 100-50] 1 puff INH BID 08/03/20 [History] Nitroglycerin 0.4 mg SL ASDIRECTED PRN 08/03/20 [History] traZODone HCl [Trazodone HCl] 50 mg PO BEDTIME 08/03/20 [History] Cholecalciferol (Vitamin D3) [Vitamin D3] 5,000 unit PO DAILY 12/19/20 [History] Clindamycin Phosphate [Cleocin T 1% Lotion] 1 applic TP BID 12/19/20 [History] Famotidine [Pepcid] 40 mg PO DAILY 12/19/20 [History] Iron,Carbonyl/Ascorbic Acid [Iron 100-Vitamin C Tablet] 1 each PO BID 12/19/20 [History] Prochlorperazine [Compazine] 10 mg PO Q6H PRN 12/19/20 [History] Tolterodine Tartrate [Detrol LA] 2 mg PO DAILY 12/19/20 [History] ondansetron HCL [Zofran] 4 mg PO Q8H PRN 12/19/20 [History] Past Medical History HEENT History: Reports: Allergic Rhinitis, Sinusitis Cardiovascular History: Reports: High Cholesterol, Hypertension, [place] Respiratory History: Reports: Bronchitis, Recurrent, SOB Gastrointestinal History: Reports: GERD, Hemorrhoids, Other (See Below) Other Gastrointestinal History: rectal mass WELLNESS GUIDE History: Reports: Musculoskeletal History: Reports: Back Pain, Chronic, Fracture Neurological History: Reports: Migraines Endocrine/Metabolic History: Reports: Obesity/BMI 30+ Oncologic (Cancer) History: Reports: Colon Dermatologic History: Reports: Other (See Below) Other Dermatologic History: boil left axillary - Infectious Disease History Infectious Disease History: Reports: Chicken Pox - Past Surgical History HEENT Surgical History: Reports: None Cardiovascular Surgical History: Reports: Coronary Artery Stent GI Surgical History: Reports: Colonoscopy Female Surgical History: Reports: Section Endocrine Surgical History: Reports: None Neurological Surgical History: Reports: Lumbar Spine, Other (See Below) Other Neurological Surgeries/Procedures: 2 rods in lower back Musculoskeletal Surgical History: Reports: Carpal Tunnel, Other (See Below) Other Musculoskeletal Surgeries/Procedures:: bilat carpal tunnel Social & Family History - Family History Family Medical History: No Pertinent Family History - Tobacco Use Tobacco Use Status *Q: Current Every Day Tobacco User Years of Tobacco use: 40 Packs/Tins Daily: 0.2 - Caffeine Use Caffeine Use: Reports: Soda, Tea - Alcohol Use Days Per Week of Alcohol Use: 2 Number of Drinks Per Day: 6 Total Drinks Per Week: 12 - Recreational Drug Use Recreational Drug Use: Yes Recreational Drug Type: Reports: Marijuana/Hashish Other Recreational Drug Type: last used marijuana yesterday Recreational Drug Use Frequency: Daily H&P Review of Systems - Review of Systems: Review Of Systems: See Below Free Text/Narrative: A complete 12 point review of systems was obtained. Pertinent positives and negatives are noted in the history of present illness. All other systems were reviewed and were negative except as noted. Exam - Exam Exam: See Below - Vital Signs Vital Signs: Last Vital Signs Temp 37.1 C 12/23/20 10:00 Pulse 92 12/23/20 10:48 Resp 96 H 12/23/20 10:24 BP 99/45 L 12/23/20 10:24 Pulse Ox 97 12/23/20 10:24 Weight: 75.251 kg - Exam Quality Assessment: Supplemental Oxygen General: Alert, Oriented, Cooperative, Sedated (Mild). No: Mild Distress HEENT: Conjunctiva Clear, Mucosa Moist & Delta. No: Scleral Icterus Neck: Supple, Trachea Midline Lungs: Clear to Auscultation, Normal Respiratory Effort Cardiovascular: Regular Rate, Regular Rhythm, Systolic Murmur GI/Abdominal Exam: Normal Bowel Sounds, Soft, Tender Extremities: No Pedal Edema. No: Increased Warmth Peripheral Pulses: 2+: Dorsalis Pedis (L), Dorsalis Pedis (R) Skin: Warm, Dry Neuro Extensive - Mental Status: Alert, Oriented x3, Nl Response to Commands Neuro Extensive - Motor, Sensory, Reflexes: No: Dysarthria, Abnormal Motor, T remor Psychiatric: Alert, Normal Affect - Patient Data Lab Results Last 24 hrs: Laboratory Results - last 24 hr 12/23/20 12/23/20 Range/Units 04:37 04:37 WBC 8.8 (4.5-11.0) K/uL RBC 2.58 L (3.30-5.50) M/uL Hgb 8.2 L D (12.0-15.0) g/dL Hct 25.4 L (36.0-48.0) % MCV 98 (80-98) fL MCH 32 H (27-31) pg MCHC 32 (32-36) % Plt Count 128 L (150-400) K/uL Sodium 138 L (140-148) mmol/L Potassium 4.6 (3.6-5.2) mmol/L Chloride 105 (100-108) mmol/L Carbon Dioxide 28 (21-32) mmol/L Anion Gap 9.6 (5.0-14.0) mmol/L BUN 18 (7-18) mg/dL Creatinine 1.6 H (0.6-1.0) mg/dL Est Cr Clr Drug Dosing 32.08 mL/min Estimated GFR (MDRD) 33 L (>60) Glucose 130 H (74-106) mg/dL Calcium 8.3 L (8.5-10.1) mg/dL Phosphorus 3.2 (2.5-4.9) mg/dL Magnesium 3.7 H D (1.8-2.4) mg/dL Total Bilirubin 0.5 (0.2-1.0) mg/dL AST 27 (15-37) U/L ALT 25 (12-78) U/L Alkaline Phosphatase 46 (46-116) U/L NT-Pro-B Natriuret Pep 340 H (5-125) pg/mL Total Protein 5.0 L (6.4-8.2) g/dL Albumin 2.2 L (3.4-5.0) g/dL Globulin 2.8 (2.3-3.5) g/dL Albumin/Globulin Ratio 0.8 L (1.2-2.2) Result Diagrams: 12/23/20 04:37 12/23/20 04:37 Sepsis Event Note - Evaluation Sepsis Screening Result: No Definite Risk - Focused Exam Vital Signs: Vital Signs Temp Pulse Resp BP BP Pulse Ox 12/23/20 10:48 92 12/23/20 10:24 90 96 H 99/45 L 97 12/23/20 10:10 98/53 L 12/23/20 10:00 37.1 C 89 16 98/53 L 97 12/23/20 09:50 37.2 C 94 16 89/52 L 93 L 12/23/20 09:45 99 16 95/48 L 94 L 12/23/20 09:40 96 16 96/53 L 97 12/23/20 09:36 101 H 15 88/44 L 95 12/23/20 09:30 37.1 C 94 15 91/51 L 97 12/23/20 08:00 37.3 C 99 16 109/48 L 96 12/23/20 07:06 96 12/23/20 07:00 37.6 C 101 H 18 97/49 L 97 12/23/20 06:00 37.8 C 96 16 95/51 L 95 12/23/20 05:00 36.8 C 103 H 19 95/51 L 95 12/23/20 04:00 36.8 C 101 H 16 89/52 L 97 12/23/20 03:00 36.7 C 92 12 96/51 L 97 12/23/20 02:00 94 13 96/51 L 96 12/23/20 01:00 100 13 99/59 L 94 L 12/23/20 00:00 37.4 C 104 H 13 101/56 L 97 *Q Meaningful Use (ADM) - VTE Risk Assess *Q Each Risk Factor Represents 1 Point: Age 41 - 59 years, Obesity ( BMI > 25 kg/m2) Total Score 1 Point Risk Factors: 2 Each Risk Factor Represents 2 Points: Malignancy (present or previous), Major surgery greater than 45 minutes Total Score 2 Point Risk Factors: 4 Each Risk Factor Represents 3 Points: None Total Score 3 Point Risk Factors: 0 Each Risk Factor Represents 5 Points: None Total Score 5 Point Risk Factors: 0 Venous Thromboembolism Risk Factor Score *Q: 6 Consult PN Assessment/Plan POD#: 2 Procedures: Procedures ASSAY OF NATRIURETIC PEPTIDE (08/05/20) ASSAY OF TROPONIN QUANT (03/13/20) BLOOD TYPING SEROLOGIC ABO (12/14/20) BLOOD TYPING SEROLOGIC RH(D) (12/14/20) BONE IMAGING 3 PHASE (01/08/18) BREAST TOMOSYNTHESIS BI (06/23/20) CARCINOEMBRYONIC ANTIGEN (08/05/20) CARPAL TUNNEL SURGERY (05/29/19) COLONOSCOPY AND BIOPSY (08/05/20) COMPLETE CBC AUTOMATED (08/05/20) COMPLETE CBC W/AUTO DIFF WBC (03/13/20) COMPREHEN METABOLIC PANEL (08/05/20) CT ABD & PELV W/CONTRAST (11/22/20) CT HEAD/BRAIN W/O DYE (07/10/15) CT THORAX DX C+ (08/05/20) ELECTRICAL STIMULATION (08/19/15) ELECTROCARDIOGRAM REPORT (03/13/20) ELECTROCARDIOGRAM TRACING (03/13/20) EMERGENCY DEPT VISIT (05/10/20) EMERGENCY DEPT VISIT (07/13/18) EMERGENCY DEPT VISIT (10/24/15) EMERGENCY DEPT VISIT (07/10/15) EMERGENCY DEPT VISIT (06/28/14) EXC FOREARM OLIVIA DEEP < 3 CM (05/29/19) HOT OR COLD PACKS THERAPY (08/19/15) HYDRATE IV INFUSION ADD-ON (07/10/15) INJECT SPINE LUMBAR/SACRAL (08/11/15) MANUAL THERAPY 1/> REGIONS (10/06/15) MECHANICAL TRACTION THERAPY (10/06/15) MRI ABDOMEN W/O & W/DYE (08/10/20) MRI JOINT UPR EXTREM W/O DYE (01/16/19) MRI LOWER EXTREMITY W/O DYE (02/14/18) MRI LUMBAR SPINE W/O DYE (08/03/15) PROTHROMBIN TIME (03/13/20) PT EVALUATION (08/19/15) RBC ANTIBODY SCREEN (12/14/20) ROUTINE VENIPUNCTURE (12/14/20) SARS-COV-2 COVID-19 AMP PRB (05/10/20) SCR MAMMO BI INCL CAD (06/23/20) THER/PROPH/DIAG INJ IV PUSH (03/13/20) THER/PROPH/DIAG INJ SC/IM (10/24/15) THERAPEUTIC EXERCISES (09/21/15) THROMBOPLASTIN TIME PARTIAL (03/13/20) TISSUE EXAM BY PATHOLOGIST (08/05/20) TTE W/DOPPLER COMPLETE (05/09/20) TX/PRO/DX INJ NEW DRUG ADDON (03/13/20) ULTRASOUND THERAPY (10/06/15) X-RAY EXAM CHEST 2 VIEWS (05/10/20) X-RAY EXAM OF WRIST (07/13/18) Problem List Initiated/Reviewed/Updated: Yes My Orders Last 24 Hours: My Active Orders 12/23/20 11:30 Lactated Ringers [Ringers, Lactated] 1,000 ml IV ASDIRECTED 12/23/20 21:00 Pantoprazole [ProTONIX] 40 mg PO BEDTIME Plan: ASSESSMENT AND RECOMMENDATIONS - 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 Had a delayed primary closure today. Seems to be doing fairly well from a surgical standpoint. -Postoperative care as per surgical team Coronary artery disease-blood pressure on the low side of normal but otherwise no unstable vital signs. No chest pain. -Continue beta-gertrude -Hold lisinopril Hypermagnesemia-patient has been receiving supplementation and magnesium level is nearly 4. -Discontinue supplementation Elevated BNP-very mild elevation. No evidence for volume overload. -No indication for diuresis -Monitor volume status Stage III chronic kidney disease-stable. Thank you for the interesting consultation and allowing me to be involved in Carey's care. Barney Harvey MD Requesting Provider: Dr. Bishop Date Consult Requested: 12/23/20 Reason for Consult: Elevated magnesium, elevated BNP and low normal blood pressure Patient History Reviewed: Yes Admission H&P Reviewed: Yes Notified Requestor: No Time Spent (in minutes): 55
--- NOTE | 2020-12-23 11:40 | OR ---
DATE OF PROCEDURE: 12/23/2020 SURGEON: Pierre Bishop MD PROCEDURES: 1. Bilateral rectus sheath blocks. 2. Bilateral transversus abdominis plane blocks. COMPLICATIONS: None. GRADING CLERK: None. RISKS: Risks, benefits, alternatives, and limitations including, but not limited to infection, bleeding, injury to abdominal structures were explained to the patient who wished to proceed. PROCEDURE IN DETAIL: The patient was placed in supine position. The left transversus plane was identified first. This was accessed using a 21-gauge needle. 20% of the solution was injected. The other side was then performed in a same manner, same fashion, same technique in the same sequence. Bilateral rectus sheaths were also injected under direct visualization with 20% of the solution respectively. During all of these injections, the anatomical landmarks were clearly identified. The needle was never advanced blindly, nor advanced beyond the peritoneum. No abnormalities were noted during filling of the area. The patient tolerated the procedure well. Pierre Bishop MD /[id number]
--- NOTE | 2020-12-23 11:51 | PN ---
DATE OF SERVICE: 12/23/2020 SUBJECTIVE: Carey is n.p.o. She will be having delayed primary closure by Pierre Bishop MD today. Vital signs have been stable. Pain has been managed. Her oral intake was 950. Urine output via Purcell catheter was 1250. BRICE drains have put out 80 and 75 mL respectively of a light pink drainage. She is passing flatus. Remainder of review of systems negative for any pertinent positives and negatives. OBJECTIVE: GENERAL: Carey Correa is a pleasant -cdyn-eni female. VITAL SIGNS: TPR is 99.1, 99, and 16. Blood pressure 109/48. HEENT: Negative. NECK: Supple. HEART: Regular rate and rhythm. LUNGS: Decreased breath sounds in the base. The left base has some rales. ABDOMEN: Dressing dry and intact. BRICE drains as above. EXTREMITIES: Without peripheral edema. ASSESSMENT: Exploratory laparotomy with: 1. Abdominal peritoneal resection. 2. Total abdominal hysterectomy with bilateral salpingo-oophorectomy. 3. Mobilization of omentum and Vicryl mesh to displace small bowel from pelvis. 4. Repair of incarcerated umbilical hernia. POSTOPERATIVE DIAGNOSES: 1. Low rectal carcinoma. 2. Large fibrous uterus. 3. Incarcerated umbilical hernia. Date of procedure: 12/21/2020. Surgeon: Victoriano Castillo MD. PLAN: 1. Check CBC, CMP, mag, phos, and BNP in a.m. 2. Further orders to be written per Pierre Bishop MD after delayed primary closure. 3. We will continue to work on incentive spirometer and ambulation. 4. We will evaluate p.r.n. or in a.m. Elena Cash PA-C /[id number]
--- NOTE | 2020-12-23 12:45 | OR ---
DATE OF PROCEDURE: 12/23/2020 SURGEON: Pierre Bishop MD PROCEDURE: Delayed primary closure. COMPLICATIONS: None. SPONGE CLIPPER: None. INDICATIONS: This is a 55-year-old female who underwent an APR, performed by Dr. Castillo, who is not available today and requiring definitive skin closure. RISKS: Risks, benefits, alternatives, and limitations including, but not limited to infection, bleeding, perforation, false positives and false negatives were explained to the patient who wished to proceed. PROCEDURE IN DETAIL: The patient was placed in supine position. The abdominal incision was inspected. The suture including its knots was intact. There was no hernia. The skin was viable along with its associated fat. There was no evidence of infection. This was thoroughly irrigated with normal saline. The wound was then closed with interrupted 3-0 Vicryl and skin yusef. The patient tolerated the procedure well. Pierre Bishop MD /[id number]
[2020-12-23] MEDS: Ondansetron 4 MG/2 ML SDV IVPUSH PRN ×3 (15:12→23:22)
[2020-12-23] MEDS: Morphine 2 MG/ML SYRINGE IVPUSH PRN ×4 (19:20→23:22)
[2020-12-23] MEDS: atorvaSTATin 20 MG Tab PO SCH (20:26)
[2020-12-23] MEDS: Pantoprazole 40 MG Tab.CR PO SCH (20:26)
[2020-12-23] MEDS: traZODone 50 MG Tab PO SCH (21:46)
[2020-12-24] MEDS: Morphine 2 MG/ML SYRINGE IVPUSH PRN ×2 (01:37→05:09)
[2020-12-24] MEDS ORDERED: Ondansetron 4 MG/2 ML SDV IVPUSH PRN (01:37)
[2020-12-24] MEDS ORDERED: Prochlorperazine 10 MG/2 ML SDV IVPUSH PRN (01:38)
[2020-12-24] MEDS ORDERED: Scopolamine 1.5 MG Transdermal Patch TOP PRN (01:40)
[2020-12-24] MEDS ORDERED: Promethazine 25 MG/ML SDV IV PRN (01:40)
[2020-12-24] MEDS ORDERED: Dexamethasone 4 MG/ML SDV IV PRN (01:42)
[2020-12-24] MEDS ORDERED: Dronabinol 2.5 MG Cap PO PRN (01:43)
[2020-12-24] MEDS: Albuterol/Ipratropium 3.0-0.5 MG/3 ML Neb Soln INH SCH ×4 (07:37→20:24)
[2020-12-24] MEDS: Formoterol/Mometasone 100-5 MCG 8.8 GM Inhaler IH SCH ×2 (07:37→20:24)
[2020-12-24] MEDS: Lactated Ringers 1,000 ML IV SCH (08:34)
[2020-12-24] MEDS: fentaNYL 100 MCG/2 ML SDV IVPUSH PRN ×3 (08:52→20:23)
[2020-12-24] MEDS: Enoxaparin 40 MG/0.4 ML Syringe SUBCUT SCH (08:53)
[2020-12-24] MEDS: Gabapentin 300 MG Cap PO SCH ×3 (09:00→20:24)
[2020-12-24] MEDS: Metoprolol Succinate 25 MG Tab.ER PO SCH (09:00)
--- NOTE | 2020-12-24 09:09 | PCM.CONSN ---
- General Info Date of Service: 12/24/20 Subjective Update: No acute events overnight. Patient did report increased pain overnight as well as some nausea but this has improved with interventions completed. Pain is still generalized in the abdomen and she also has a component of rectal pain that is more uncomfortable when laying in certain positions or sitting. No significant output into the ostomy yet. Blood pressures are slightly better than yesterday and remain in the normal range. She is on 1 L of oxygen. H emoglobin is down to 7 and blood transfusion is planned. Functional Status: Reports: Pain Controlled - Review of Systems General: Denies: Fever Gastrointestinal: Reports: Abdominal Pain, Nausea - Patient Data Vitals - Most Recent: Last Vital Signs Temp 37.1 C 12/24/20 04:07 Pulse 84 12/24/20 09:00 Resp 15 12/24/20 06:00 BP 120/61 12/24/20 09:00 Pulse Ox 98 12/24/20 06:00 Weight - Most Recent: 75.251 kg I&O - Last 24 Hours: Intake & Output 12/23/20 12/24/20 12/24/20 22:59 06:59 14:59 Intake Total 643 1309 400 Output Total 600 240 100 Balance 43 1069 300 Lab Results Last 24 Hours: Laboratory Results - last 24 hr 12/21/20 12/24/20 12/24/20 Range/Units 12:05 04:45 04:45 WBC 9.5 (4.5-11.0) K/uL RBC 2.24 L (3.30-5.50) M/uL Hgb 7.0 L (12.0-15.0) g/dL Hct 21.9 L (36.0-48.0) % MCV 98 (80-98) fL MCH 31 (27-31) pg MCHC 32 (32-36) % Plt Count 123 L (150-400) K/uL Sodium 141 (140-148) mmol/L Potassium 4.2 (3.6-5.2) mmol/L Chloride 107 (100-108) mmol/L Carbon Dioxide 29 (21-32) mmol/L Anion Gap 4.7 L (5.0-14.0) mmol/L BUN 14 (7-18) mg/dL Creatinine 1.0 (0.6-1.0) mg/dL Est Cr Clr Drug Dosing 51.33 mL/min Estimated GFR (MDRD) 57 L (>60) Glucose 113 H (74-106) mg/dL Calcium 8.5 (8.5-10.1) mg/dL Phosphorus 2.2 L (2.5-4.9) mg/dL Magnesium 2.7 H D (1.8-2.4) mg/dL Total Bilirubin 0.5 (0.2-1.0) mg/dL AST 48 H D (15-37) U/L ALT 34 (12-78) U/L Alkaline Phosphatase 54 (46-116) U/L NT-Pro-B Natriuret Pep 2402 H (5-125) pg/mL Total Protein 5.3 L (6.4-8.2) g/dL Albumin 2.0 L (3.4-5.0) g/dL Globulin 3.3 (2.3-3.5) g/dL Albumin/Globulin Ratio 0.6 L (1.2-2.2) Blood Type A POSITIVE Gel Antibody Screen Negative Crossmatch See Detail Med Orders - Current: Current Medications Hydrocodone Bitart/Acetaminophen (Acetaminophen/Hydrocodone 325-5 Mg Tab) 1 - 2 tab PO Q4H PRN PRN Reason: Pain (moderate 4-6) Last Admin: 12/23/20 15:48 Dose: 1 tab Documented by: Albuterol/Ipratropium (Albuterol/Ipratropium 3.0-0.5 Mg/3 Ml Neb Soln) 3 ml INH QIDRT [facility] Last Admin: 12/24/20 07:37 Dose: 3 ml Documented by: Albuterol/Ipratropium (Albuterol/Ipratropium 3.0-0.5 Mg/3 Ml Neb Soln) 3 ml INH Q4H PRN PRN Reason: BREATHING Alvimopan (Alvimopan 12 Mg Capsule) 12 mg PO Q12H [facility] Stop: 12/28/20 12:01 Last Admin: 12/24/20 00:11 Dose: 12 mg Documented by: Atorvastatin Calcium (Atorvastatin 20 Mg Tab) 80 mg PO BEDTIME [facility] Last Admin: 12/23/20 20:26 Dose: 80 mg Documented by: Cyclobenzaprine HCl (Cyclobenzaprine 10 Mg Tab) 10 mg PO Q8H PRN PRN Reason: Muscle Spasm - Painful Last Admin: 12/23/20 13:58 Dose: 10 mg Documented by: Dexamethasone (Dexamethasone 4 Mg/Ml Sdv) 10 mg IV Q4H PRN PRN Reason: Nausea/Vomiting Dronabinol (Dronabinol 2.5 Mg Cap) 2.5 mg PO BID PRN PRN Reason: Nausea/Vomiting Enoxaparin Sodium (Enoxaparin 40 Mg/0.4 Ml Syringe) 40 mg SUBCUT DAILY [facility] Last Admin: 12/24/20 08:53 Dose: 40 mg Documented by: Fentanyl (Fentanyl 100 Mcg/2 Ml Sdv) 10 - 25 mcg IVPUSH Q1H PRN PRN Reason: Pain Last Admin: 12/24/20 08:52 Dose: 25 mcg Documented by: Furosemide (Furosemide 40 Mg/4 Ml Vial) 20 mg IVPUSH ONETIME ONE Stop: 12/24/20 12:01 Gabapentin (Gabapentin 300 Mg Cap) 300 mg PO TID [facility] Last Admin: 12/24/20 09:00 Dose: 300 mg Documented by: Hydroxyzine HCl (Hydroxyzine Hcl 100 Mg/2 Ml Sdv) 100 mg IM Q4H PRN PRN Reason: PAIN Last Admin: 12/21/20 20:42 Dose: 100 mg Documented by: Lactated Ringer's (Ringers, Lactated) 1,000 mls @ 25 mls/hr IV ASDIRECTED [facility] Metoprolol Succinate (Metoprolol Succinate 25 Mg Tab.Er) 12.5 mg PO DAILY [facility] Last Admin: 12/24/20 09:00 Dose: 12.5 mg Documented by: Mometasone Furoate/Formoterol Fumar (Formoterol/Mometasone 100-5 Mcg 8.8 Gm Inhaler) 2 puff IH BIDRT [facility] Last Admin: 12/24/20 07:37 Dose: 2 puff Documented by: Nitroglycerin (Nitroglycerin 0.4 Mg Tab.Sl) 0.4 mg SL ASDIRECTED PRN PRN Reason: CHEST PAIN Ondansetron HCl (Ondansetron 4 Mg/2 Ml Sdv) 4 mg IVPUSH Q4H PRN PRN Reason: Nausea Last Admin: 12/23/20 23:22 Dose: 4 mg Documented by: Pantoprazole Sodium (Pantoprazole 40 Mg Tab.Cr) 40 mg PO BEDTIME [facility] Last Admin: 12/23/20 20:26 Dose: 40 mg Documented by: Prochlorperazine Edisylate (Prochlorperazine 10 Mg/2 Ml Sdv) 5 - 10 mg IVPUSH Q4H PRN PRN Reason: Nausea/Vomiting Last Admin: 12/24/20 01:44 Dose: 10 mg Documented by: Promethazine HCl (Promethazine 25 Mg/Ml Sdv) 12.5 - 25 mg IV Q4H PRN PRN Reason: Nausea/Vomiting Last Admin: 12/24/20 05:10 Dose: 12.5 mg Documented by: Scopolamine (Scopolamine 1.5 Mg Transdermal Patch) 1.5 mg TOP Q72H PRN PRN Reason: Nausea/Vomiting Last Admin: 12/24/20 05:10 Dose: 1.5 mg Documented by: Senna/Docusate Sodium (Docusate Sodium/Sennosides 50-8.6 Mg Tab) 2 tab PO BID [facility] Last Admin: 12/24/20 09:00 Dose: 2 tab Documented by: Trazodone HCl (Trazodone 50 Mg Tab) 50 mg PO BEDTIME [facility] Last Admin: 12/23/20 21:46 Dose: 50 mg Documented by: Discontinued Medications Albuterol/Ipratropium (Albuterol/Ipratropium 3.0-0.5 Mg/3 Ml Neb Soln) 3 ml NEB ONETIME ONE Stop: 12/21/20 13:31 Last Admin: 12/21/20 13:19 Dose: 3 ml Documented by: Alvimopan (Alvimopan 12 Mg Capsule) 12 mg PO ONETIME ONE Stop: 12/21/20 12:46 Last Admin: 12/21/20 12:12 Dose: 12 mg Documented by: Bupivacaine HCl (Bupivacaine 0.5% 50 Ml Mdv) Confirm Administered Dose 50 ml .ROUTE .STK-MED ONE Stop: 12/21/20 11:11 Bupivacaine HCl (Bupivacaine 0.5% 50 Ml Mdv) Confirm Administered Dose 50 ml .ROUTE .STK-MED ONE Stop: 12/23/20 07:48 Ropivacaine 37 ml/Dexamethasone 8 mg/Epinephrine HCl 0.4 mg/ Sodium Chloride 40.6 ml 0 ml NERVRT ASDIRECTED [facility] Last Admin: 12/23/20 09:15 Dose: 80 syringe Documented by: Dexamethasone (Dexamethasone 4 Mg/Ml Sdv) Confirm Administered Dose 4 mg .ROUTE .STK-MED ONE Stop: 12/21/20 09:03 Diphenhydramine HCl (Diphenhydramine 50 Mg/Ml Sdv) 25 mg IVPUSH Q6H PRN PRN Reason: ITCHING Fentanyl (Fentanyl 250 Mcg/5 Ml Sdv) Confirm Administered Dose 250 mcg .ROUTE .STK-MED ONE Stop: 12/21/20 09:02 Fentanyl (Fentanyl 250 Mcg/5 Ml Sdv) Confirm Administered Dose 250 mcg .ROUTE .STK-MED ONE Stop: 12/21/20 15:58 Fentanyl (Fentanyl 100 Mcg/2 Ml Sdv) Confirm Administered Dose 100 mcg .ROUTE .STK-MED ONE Stop: 12/21/20 18:15 Fluorescein Sodium (Fluorescein 5 Ml Vial) Confirm Administered Dose 5 ml .ROUTE .STK-MED ONE Stop: 12/21/20 15:45 Furosemide (Furosemide 20 Mg/2 Ml Vial) Confirm Administered Dose 20 mg .ROUTE .STK-MED ONE Stop: 12/21/20 16:54 Gabapentin (Gabapentin 300 Mg Cap) 300 mg PO ONETIME ONE Stop: 12/21/20 12:46 Last Admin: 12/21/20 12:12 Dose: 300 mg Documented by: Glycopyrrolate (Glycopyrrolate 0.2 Mg/Ml 5 Ml Mdv) Confirm Administered Dose 1 mg .ROUTE .STK-MED ONE Stop: 12/21/20 09:03 Dextrose/Lactated Ringer's (Dextrose 5%-Lactated Ringers) 1,000 mls @ 100 mls/hr IV ASDIRECTED [facility] Last Admin: 12/23/20 02:37 Dose: 100 mls/hr Documented by: Cefoxitin Sodium 2 gm/ Sodium (Chloride) 50 mls @ 100 mls/hr IV ONETIME ONE Stop: 12/21/20 14:29 Last Admin: 12/21/20 13:15 Dose: 100 mls/hr Documented by: Fentanyl 2,500 mcg/ Sodium (Chloride) 250 mls @ 0 mls/hr EPIDUR TITRATE ROBI; Protocol Last Admin: 12/22/20 14:17 Dose: 100 mcg/hr, 10 mls/hr Documented by: Sodium Chloride (Normal Saline) Confirm Administered Dose 10 mls @ as directed .ROUTE .[facility] ONE Stop: 12/21/20 14:03 Lactated Ringer's (Ringers, Lactated) Confirm Administered Dose 1,000 mls @ as directed .ROUTE .[facility] ONE Stop: 12/21/20 14:42 Lactated Ringer's (Ringers, Lactated) Confirm Administered Dose 1,000 mls @ as directed .ROUTE .[facility] ONE Stop: 12/21/20 16:34 Lactated Ringer's (Ringers, Lactated) Confirm Administered Dose 1,000 mls @ as directed .ROUTE .[facility] ONE Stop: 12/21/20 17:47 Lactated Ringer's (Ringers, Lactated) 1,000 mls @ 75 mls/hr IV ASDIRECTED [facility] Last Admin: 12/23/20 02:37 Dose: 75 mls/hr Documented by: Cefoxitin Sodium 2 gm/ Sodium (Chloride) 50 mls @ 100 mls/hr IV Q6H [facility] Stop: 12/23/20 14:29 Last Admin: 12/23/20 13:46 Dose: 100 mls/hr Documented by: Lactated Ringer's (Ringers, Lactated) 1,000 mls @ 1,000 mls/hr IV ONETIME ONE Stop: 12/22/20 07:59 Last Admin: 12/22/20 19:48 Dose: Not Given Documented by: Magnesium Sulfate (Magnesium Sulfate In Water 2 Gm/50 Ml) 2 gm in 50 mls @ 25 mls/hr IV Q6H [facility] Stop: 12/25/20 02:59 Last Admin: 12/23/20 06:30 Dose: 50 mls/hr Documented by: Lactated Ringer's (Ringers, Lactated) 750 mls @ 750 mls/hr IV ONETIME ONE Stop: 12/22/20 08:14 Last Admin: 12/22/20 07:47 Dose: 750 mls/hr Documented by: Lactated Ringer's (Ringers, Lactated) 1,000 mls @ 100 mls/hr IV ASDIRECTED [facility] Last Admin: 12/24/20 08:34 Dose: 100 mls/hr Documented by: Lidocaine/Epinephrine (Lidocaine 1% With Epinephrine 1:100,000 50 Ml Mdv) Confirm Administered Dose 50 ml .ROUTE .STK-MED ONE Stop: 12/21/20 11:11 Lidocaine/Epinephrine (Lidocaine 1% With Epinephrine 1:100,000 50 Ml Mdv) Confirm Administered Dose 50 ml .ROUTE .STK-MED ONE Stop: 12/23/20 07:48 Lisinopril (Lisinopril 2.5 Mg Tab) 2.5 mg PO BEDTIME ROBI Last Admin: 12/22/20 21:23 Dose: Not Given Documented by: Lisinopril (Lisinopril 5 Mg Tab) Confirm Administered Dose 5 mg .ROUTE .STK-MED ONE Stop: 12/21/20 20:48 Last Admin: 12/21/20 22:12 Dose: Not Given Documented by: Meropenem (Meropenem 500 Mg Sdv) Confirm Administered Dose 500 mg .ROUTE .STK- MED ONE Stop: 12/21/20 11:11 Last Admin: 12/21/20 14:35 Dose: 500 mg Documented by: Meropenem (Meropenem 500 Mg Sdv) Confirm Administered Dose 1,000 mg .ROUTE .STK- MED ONE Stop: 12/21/20 16:43 Meropenem (Meropenem 500 Mg Sdv) Confirm Administered Dose 500 mg .ROUTE .STK- MED ONE Stop: 12/23/20 07:48 Miscellaneous Information (Remove Scopolamine Patch) 0 ea TRDERM ONETIME ONE Stop: 12/23/20 12:01 Last Admin: 12/23/20 13:48 Dose: 1 ea Documented by: Mometasone Furoate/Formoterol Fumar (Formoterol/Mometasone 100-5 Mcg 8.8 Gm Inhaler) 2 puff IH ONETIME ONE Stop: 12/21/20 13:31 Last Admin: 12/21/20 13:06 Dose: 2 puff Documented by: Mometasone Furoate/Formoterol Fumar (Formoterol/Mometasone 100-5 Mcg 8.8 Gm Inhaler) 2 puff IH BID ROBI Last Admin: 12/21/20 22:20 Dose: Not Given Documented by: Morphine Sulfate (Morphine 2 Mg/Ml Syringe) 1 - 3 mg IVPUSH Q1H PRN PRN Reason: Pain (severe 7-10) Last Admin: 12/24/20 05:09 Dose: 3 mg Documented by: Naloxone HCl (Naloxone 0.4 Mg/Ml Sdv) 0.1 mg IVPUSH Q5M PRN PRN Reason: RESP RATE LESS THAN 6/MINUTE Last Admin: 12/21/20 23:18 Dose: 0.4 mg Documented by: Naloxone HCl (Naloxone 0.4 Mg/Ml Sdv) 0.4 mg IV ASDIRECTED PRN PRN Reason: ITCHING Neostigmine Methylsulfate (Neostigmine Methylsulfate 1 Mg/Ml 5 Ml Syringe) Confirm Administered Dose 5 mg .ROUTE .STK-MED ONE Stop: 12/21/20 09:03 Ondansetron HCl (Ondansetron 4 Mg/2 Ml Sdv) Confirm Administered Dose 4 mg .R OUTE .STK-MED ONE Stop: 12/21/20 09:03 Ondansetron HCl (Ondansetron 4 Mg/2 Ml Sdv) 4 mg IVPUSH Q4H PRN PRN Reason: Nausea Pantoprazole Sodium (Pantoprazole 40 Mg Vial) 40 mg IVPUSH Q24H [facility] Last Admin: 12/22/20 21:15 Dose: 40 mg Documented by: Propofol (Propofol 200 Mg/20 Ml Sdv) Confirm Administered Dose 200 mg .ROUTE .STK-MED ONE Stop: 12/21/20 09:03 Propofol (Propofol 200 Mg/20 Ml Sdv) Confirm Administered Dose 200 mg .ROUTE .STK-MED ONE Stop: 12/23/20 09:01 Propofol (Propofol 200 Mg/20 Ml Sdv) Confirm Administered Dose 200 mg .ROUTE .STK-MED ONE Stop: 12/23/20 09:24 Rocuronium [place] (Rocuronium 50 Mg/5 Ml Vial) Confirm Administered Dose 50 mg .ROUTE .STK-MED ONE Stop: 12/21/20 09:03 Rocuronium [place] (Rocuronium 50 Mg/5 Ml Vial) Confirm Administered Dose 50 mg .ROUTE .STK-MED ONE Stop: 12/21/20 14:15 Rocuronium [place] (Rocuronium 50 Mg/5 Ml Vial) Confirm Administered Dose 50 mg .ROUTE .STK-MED ONE Stop: 12/21/20 17:10 Scopolamine (Scopolamine 1.5 Mg Transdermal Patch) 1.5 mg TOP Q72H [facility] Stop: 12/23/20 12:00 Last Admin: 12/21/20 12:12 Dose: 1.5 mg Documented by: Succinylcholine Chloride (Succinylcholine 200 Mg/10 Ml Mdv) Confirm Administered Dose 200 mg .ROUTE .[facility] ONE Stop: 12/21/20 09:03 - Exam Quality Assessment: Supplemental Oxygen Urinary Catheter Total Time: 2Days 1Hours General: Alert, Oriented, Cooperative, No Acute Distress, Sedated Lungs: Normal Respiratory Effort, Crackles (both bases) Cardiovascular: Regular Rate, Regular Rhythm GI/Abdominal Exam: Soft, No Distention, Abnormal Bowel Sounds (hypoactive ) Extremities: No Pedal Edema. No: Increased Warmth Skin: Warm, Dry Psy/Mental Status: Alert, Normal Affect, Other (falls asleep easy) Sepsis Event Note - Evaluation Sepsis Screening Result: No Definite Risk - Focused Exam Vital Signs: Vital Signs Temp Pulse Pulse Pulse Resp BP BP 12/24/20 09:00 84 120/61 12/24/20 07:38 86 12/24/20 06:00 82 15 112/59 L 12/24/20 04:07 37.1 C 82 14 115/66 12/24/20 03:00 74 16 96/59 L 12/24/20 01:00 36.2 C 76 17 121/67 12/23/20 23:00 36.2 C Pulse Ox 12/24/20 09:00 12/24/20 07:38 12/24/20 06:00 98 12/24/20 04:07 100 12/24/20 03:00 97 12/24/20 01:00 96 12/23/20 23:00 Consult PN Assessment/Plan POD#: 3 Procedures: Procedures ASSAY OF NATRIURETIC PEPTIDE (08/05/20) ASSAY OF TROPONIN QUANT (03/13/20) BLOOD TYPING SEROLOGIC ABO (12/14/20) BLOOD TYPING SEROLOGIC RH(D) (12/14/20) BONE IMAGING 3 PHASE (01/08/18) BREAST TOMOSYNTHESIS BI (06/23/20) CARCINOEMBRYONIC ANTIGEN (08/05/20) CARPAL TUNNEL SURGERY (05/29/19) COLONOSCOPY AND BIOPSY (08/05/20) COMPLETE CBC AUTOMATED (08/05/20) COMPLETE CBC W/AUTO DIFF WBC (03/13/20) COMPREHEN METABOLIC PANEL (08/05/20) CT ABD & PELV W/CONTRAST (11/22/20) CT HEAD/BRAIN W/O DYE (07/10/15) CT THORAX DX C+ (08/05/20) ELECTRICAL STIMULATION (08/19/15) ELECTROCARDIOGRAM REPORT (03/13/20) ELECTROCARDIOGRAM TRACING (03/13/20) EMERGENCY DEPT VISIT (05/10/20) EMERGENCY DEPT VISIT (07/13/18) EMERGENCY DEPT VISIT (10/24/15) EMERGENCY DEPT VISIT (07/10/15) EMERGENCY DEPT VISIT (06/28/14) EXC FOREARM OLIVIA DEEP < 3 CM (05/29/19) HOT OR COLD PACKS THERAPY (08/19/15) HYDRATE IV INFUSION ADD-ON (07/10/15) INJECT SPINE LUMBAR/SACRAL (08/11/15) MANUAL THERAPY 1/> REGIONS (10/06/15) MECHANICAL TRACTION THERAPY (10/06/15) MRI ABDOMEN W/O & W/DYE (08/10/20) MRI JOINT UPR EXTREM W/O DYE (01/16/19) MRI LOWER EXTREMITY W/O DYE (02/14/18) MRI LUMBAR SPINE W/O DYE (08/03/15) PROTHROMBIN TIME (03/13/20) PT EVALUATION (08/19/15) RBC ANTIBODY SCREEN (12/14/20) ROUTINE VENIPUNCTURE (12/14/20) SARS-COV-2 COVID-19 AMP PRB (05/10/20) SCR MAMMO BI INCL CAD (06/23/20) THER/PROPH/DIAG INJ IV PUSH (03/13/20) THER/PROPH/DIAG INJ SC/IM (10/24/15) THERAPEUTIC EXERCISES (09/21/15) THROMBOPLASTIN TIME PARTIAL (03/13/20) TISSUE EXAM BY PATHOLOGIST (08/05/20) TTE W/DOPPLER COMPLETE (05/09/20) TX/PRO/DX INJ NEW DRUG ADDON (03/13/20) ULTRASOUND THERAPY (10/06/15) X-RAY EXAM CHEST 2 VIEWS (05/10/20) X-RAY EXAM OF WRIST (07/13/18) Problem List Initiated/Reviewed/Updated: Yes My Orders Last 24 Hours: My Active Orders 12/23/20 21:00 Pantoprazole [ProTONIX] 40 mg PO BEDTIME 12/24/20 09:15 Lactated Ringers [Ringers, Lactated] 1,000 ml IV ASDIRECTED 12/24/20 12:00 Furosemide [Lasix] 20 mg IVPUSH ONETIME ONE 12/25/20 05:00 BASIC METABOLIC PANEL,BMP [CHEM] Timed CBC W/O DIFF,HEMOGRAM [HEME] Timed (1) Plan: ASSESSMENT AND RECOMMENDATIONS - 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 Had a delayed primary closure 12/23. Seems to be doing fairly well from a surgical standpoint. Hemoglobin is down as discussed below. Some difficulty with pain and nausea. -Postoperative care as per surgical team Anemia due to blood loss-hemoglobin down to 7 this morning. Blood pressure remains on the low side of normal. -Transfusion as planned per surgical team -Dose of furosemide between units -Repeat labs in the morning Coronary artery disease-blood pressure in the normal range but on the lower side. -Continue beta-gertrude -Hold lisinopril Hypermagnesemia- -Discontinue supplementation Elevated BNP-very mild elevation. Possibly some mild volume overload. -Dose of furosemide between units of blood -Monitor volume status Stage III chronic kidney disease-stable. Barney Harvey MD
[2020-12-24] MEDS ORDERED: Lactated Ringers 1,000 ML IV SCH (09:15)
[2020-12-24] MEDS ORDERED: Furosemide 20 MG/2 ML VIAL IVPUSH ONE (12:00)
[2020-12-24] MEDS: Acetaminophen/HYDROcodone 325-5 MG Tab PO PRN ×2 (12:53→21:42)
--- NOTE | 2020-12-24 13:44 | PN ---
DATE OF SERVICE: 12/24/2020 SUBJECTIVE: The patient is doing okay today. Some nausea, but this remained stable. No vomiting, shortness of breath, or chest pain. OBJECTIVE: VITAL SIGNS: Stable. She is afebrile. CARDIOVASCULAR: Regular rhythm and rate. RESPIRATORY: Mild crackles noted. ABDOMEN: Dressing and incision intact. ASSESSMENT: Status post abdominoperineal resection. PLAN: 1. Hematology. The patient's hemoglobin dropped to 7. We will transfuse with 2 units of packed red blood cells and 1 unit of FFP today. 2. Prophylaxis. We will add Lovenox to the regimen today. 3. Pain Management. We will switch to fentanyl today to see if this affects her nausea. 4. General disposition/electrolytes. Will hospitalist service to continue this. Pierre Bishop MD /[id number]
[2020-12-24] MEDS: traZODone 50 MG Tab PO SCH (20:24)
[2020-12-24] MEDS: atorvaSTATin 20 MG Tab PO SCH (20:24)
[2020-12-24] MEDS: Pantoprazole 40 MG Tab.CR PO SCH (21:42)
[2020-12-25] MEDS: fentaNYL 100 MCG/2 ML SDV IVPUSH PRN ×2 (01:07→04:06)
[2020-12-25] MEDS: Acetaminophen/HYDROcodone 325-5 MG Tab PO PRN ×4 (06:13→21:51)
[2020-12-25] MEDS: Albuterol/Ipratropium 3.0-0.5 MG/3 ML Neb Soln INH SCH ×5 (07:16→21:48)
[2020-12-25] MEDS: Formoterol/Mometasone 100-5 MCG 8.8 GM Inhaler IH SCH ×2 (07:16→21:51)
[2020-12-25] MEDS: Enoxaparin 40 MG/0.4 ML Syringe SUBCUT SCH (08:22)
[2020-12-25] MEDS: Gabapentin 300 MG Cap PO SCH ×3 (08:22→21:51)
[2020-12-25] MEDS: Metoprolol Succinate 25 MG Tab.ER PO SCH (08:23)
--- NOTE | 2020-12-25 10:08 | PCM.PN ---
- General Info Date of Service: 12/25/20 Functional Status: Reports: Pain Controlled, Tolerating Diet - Review of Systems General: Denies: Fever Gastrointestinal: Reports: Abdominal Pain - Patient Data Vitals - Most Recent: Last Vital Signs Temp 36.7 C 12/25/20 07:00 Pulse 66 12/25/20 09:00 Resp 10 L 12/25/20 09:00 BP 126/73 12/25/20 09:00 Pulse Ox 95 12/25/20 09:00 Weight - Most Recent: 75.251 kg I&O - Last 24 Hours: Intake & Output 12/24/20 12/25/20 12/25/20 22:59 06:59 14:59 Intake Total 542 843 Output Total 450 395 150 Balance 92 448 -150 Lab Results Last 24 Hours: Laboratory Results - last 24 hr 12/21/20 12/25/20 12/25/20 Range/Units 12:05 05:00 05:40 WBC 7.8 (4.5-11.0) K/uL RBC 3.22 L (3.30-5.50) M/uL Hgb 9.9 L D (12.0-15.0) g/dL Hct 29.9 L (36.0-48.0) % MCV 93 (80-98) fL MCH 31 (27-31) pg MCHC 33 (32-36) % Plt Count 107 L (150-400) K/uL Sodium 142 (140-148) mmol/L Potassium 4.1 (3.6-5.2) mmol/L Chloride 106 (100-108) mmol/L Carbon Dioxide 27 (21-32) mmol/L Anion Gap 9.4 (5.0-14.0) mmol/L BUN 24 H D (7-18) mg/dL Creatinine 1.4 H (0.6-1.0) mg/dL Est Cr Clr Drug Dosing 36.66 mL/min Estimated GFR (MDRD) 39 L (>60) Glucose 88 (74-106) mg/dL Calcium 9.1 (8.5-10.1) mg/dL Blood Type A POSITIVE Gel Antibody Screen Negative Crossmatch See Detail Med Orders - Current: Current Medications Hydrocodone Bitart/Acetaminophen (Acetaminophen/Hydrocodone 325-5 Mg Tab) 1 - 2 tab PO Q4H PRN PRN Reason: Pain (moderate 4-6) Last Admin: 12/25/20 06:13 Dose: 2 tab Documented by: Albuterol/Ipratropium (Albuterol/Ipratropium 3.0-0.5 Mg/3 Ml Neb Soln) 3 ml INH QIDRT [facility] Last Admin: 12/25/20 07:16 Dose: 3 ml Documented by: Albuterol/Ipratropium (Albuterol/Ipratropium 3.0-0.5 Mg/3 Ml Neb Soln) 3 ml INH Q4H PRN PRN Reason: BREATHING Alvimopan (Alvimopan 12 Mg Capsule) 12 mg PO Q12H [facility] Stop: 12/28/20 12:01 Last Admin: 12/24/20 23:52 Dose: 12 mg Documented by: Atorvastatin Calcium (Atorvastatin 20 Mg Tab) 80 mg PO BEDTIME [facility] Last Admin: 12/24/20 20:24 Dose: 80 mg Documented by: Cyclobenzaprine HCl (Cyclobenzaprine 10 Mg Tab) 10 mg PO Q8H PRN PRN Reason: Muscle Spasm - Painful Last Admin: 12/23/20 13:58 Dose: 10 mg Documented by: Dexamethasone (Dexamethasone 4 Mg/Ml Sdv) 10 mg IV Q4H PRN PRN Reason: Nausea/Vomiting Dronabinol (Dronabinol 2.5 Mg Cap) 2.5 mg PO BID PRN PRN Reason: Nausea/Vomiting Enoxaparin Sodium (Enoxaparin 40 Mg/0.4 Ml Syringe) 40 mg SUBCUT DAILY [facility] Last Admin: 12/25/20 08:22 Dose: 40 mg Documented by: Fentanyl (Fentanyl 100 Mcg/2 Ml Sdv) 10 - 25 mcg IVPUSH Q1H PRN PRN Reason: Pain Last Admin: 12/25/20 04:06 Dose: 20 mcg Documented by: Gabapentin (Gabapentin 300 Mg Cap) 300 mg PO TID [facility] Last Admin: 12/25/20 08:22 Dose: 300 mg Documented by: Hydroxyzine HCl (Hydroxyzine Hcl 100 Mg/2 Ml Sdv) 100 mg IM Q4H PRN PRN Reason: PAIN Last Admin: 12/21/20 20:42 Dose: 100 mg Documented by: Metoprolol Succinate (Metoprolol Succinate 25 Mg Tab.Er) 12.5 mg PO DAILY [facility] Last Admin: 12/25/20 08:23 Dose: 12.5 mg Documented by: Mometasone Furoate/Formoterol Fumar (Formoterol/Mometasone 100-5 Mcg 8.8 Gm Inhaler) 2 puff IH BIDRT [facility] Last Admin: 12/25/20 07:16 Dose: 2 puff Documented by: Nitroglycerin (Nitroglycerin 0.4 Mg Tab.Sl) 0.4 mg SL ASDIRECTED PRN PRN Reason: CHEST PAIN Ondansetron HCl (Ondansetron 4 Mg/2 Ml Sdv) 4 mg IVPUSH Q4H PRN PRN Reason: Nausea Last Admin: 12/23/20 23:22 Dose: 4 mg Documented by: Pantoprazole Sodium (Pantoprazole 40 Mg Tab.Cr) 40 mg PO BEDTIME [facility] Last Admin: 12/24/20 21:42 Dose: 40 mg Documented by: Prochlorperazine Edisylate (Prochlorperazine 10 Mg/2 Ml Sdv) 5 - 10 mg IVPUSH Q4H PRN PRN Reason: Nausea/Vomiting Last Admin: 12/24/20 01:44 Dose: 10 mg Documented by: Promethazine HCl (Promethazine 25 Mg/Ml Sdv) 12.5 - 25 mg IV Q4H PRN PRN Reason: Nausea/Vomiting Last Admin: 12/24/20 05:10 Dose: 12.5 mg Documented by: Scopolamine (Scopolamine 1.5 Mg Transdermal Patch) 1.5 mg TOP Q72H PRN PRN Reason: Nausea/Vomiting Last Admin: 12/24/20 05:10 Dose: 1.5 mg Documented by: Senna/Docusate Sodium (Docusate Sodium/Sennosides 50-8.6 Mg Tab) 2 tab PO BID [facility] Last Admin: 12/25/20 08:22 Dose: 2 tab Documented by: Trazodone HCl (Trazodone 50 Mg Tab) 50 mg PO BEDTIME [facility] Last Admin: 12/24/20 20:24 Dose: 50 mg Documented by: Discontinued Medications Albuterol/Ipratropium (Albuterol/Ipratropium 3.0-0.5 Mg/3 Ml Neb Soln) 3 ml NEB ONETIME ONE Stop: 12/21/20 13:31 Last Admin: 12/21/20 13:19 Dose: 3 ml Documented by: Alvimopan (Alvimopan 12 Mg Capsule) 12 mg PO ONETIME ONE Stop: 12/21/20 12:46 Last Admin: 12/21/20 12:12 Dose: 12 mg Documented by: Bupivacaine HCl (Bupivacaine 0.5% 50 Ml Mdv) Confirm Administered Dose 50 ml .ROUTE .STK-MED ONE Stop: 12/21/20 11:11 Bupivacaine HCl (Bupivacaine 0.5% 50 Ml Mdv) Confirm Administered Dose 50 ml .ROUTE .STK-MED ONE Stop: 12/23/20 07:48 Ropivacaine 37 ml/Dexamethasone 8 mg/Epinephrine HCl 0.4 mg/ Sodium Chloride 40.6 ml 0 ml NERVRT ASDIRECTED [facility] Last Admin: 12/23/20 09:15 Dose: 80 syringe Documented by: Dexamethasone (Dexamethasone 4 Mg/Ml Sdv) Confirm Administered Dose 4 mg .ROUTE .STK-MED ONE Stop: 12/21/20 09:03 Diphenhydramine HCl (Diphenhydramine 50 Mg/Ml Sdv) 25 mg IVPUSH Q6H PRN PRN Reason: ITCHING Fentanyl (Fentanyl 250 Mcg/5 Ml Sdv) Confirm Administered Dose 250 mcg .ROUTE .STK-MED ONE Stop: 12/21/20 09:02 Fentanyl (Fentanyl 250 Mcg/5 Ml Sdv) Confirm Administered Dose 250 mcg .ROUTE .STK-MED ONE Stop: 12/21/20 15:58 Fentanyl (Fentanyl 100 Mcg/2 Ml Sdv) Confirm Administered Dose 100 mcg .ROUTE .STK-MED ONE Stop: 12/21/20 18:15 Fluorescein Sodium (Fluorescein 5 Ml Vial) Confirm Administered Dose 5 ml .ROUTE .STK-MED ONE Stop: 12/21/20 15:45 Furosemide (Furosemide 20 Mg/2 Ml Vial) Confirm Administered Dose 20 mg .ROUTE .STK-MED ONE Stop: 12/21/20 16:54 Furosemide (Furosemide 20 Mg/2 Ml Vial) 20 mg IVPUSH ONETIME ONE Stop: 12/24/20 12:01 Last Admin: 12/24/20 11:23 Dose: 20 mg Documented by: Gabapentin (Gabapentin 300 Mg Cap) 300 mg PO ONETIME ONE Stop: 12/21/20 12:46 Last Admin: 12/21/20 12:12 Dose: 300 mg Documented by: Glycopyrrolate (Glycopyrrolate 0.2 Mg/Ml 5 Ml Mdv) Confirm Administered Dose 1 mg .ROUTE .STK-MED ONE Stop: 12/21/20 09:03 Dextrose/Lactated Ringer's (Dextrose 5%-Lactated Ringers) 1,000 mls @ 100 mls/hr IV ASDIRECTED [facility] Last Admin: 12/23/20 02:37 Dose: 100 mls/hr Documented by: Cefoxitin Sodium 2 gm/ Sodium (Chloride) 50 mls @ 100 mls/hr IV ONETIME ONE Stop: 12/21/20 14:29 Last Admin: 12/21/20 13:15 Dose: 100 mls/hr Documented by: Fentanyl 2,500 mcg/ Sodium (Chloride) 250 mls @ 0 mls/hr EPIDUR TITRATE [facility]; Protocol Last Admin: 12/22/20 14:17 Dose: 100 mcg/hr, 10 mls/hr Documented by: Sodium Chloride (Normal Saline) Confirm Administered Dose 10 mls @ as directed .ROUTE .STK-MED ONE Stop: 12/21/20 14:03 Lactated Ringer's (Ringers, Lactated) Confirm Administered Dose 1,000 mls @ as directed .ROUTE .STK-MED ONE Stop: 12/21/20 14:42 Lactated Ringer's (Ringers, Lactated) Confirm Administered Dose 1,000 mls @ as directed .ROUTE .STK-MED ONE Stop: 12/21/20 16:34 Lactated Ringer's (Ringers, Lactated) Confirm Administered Dose 1,000 mls @ as directed .ROUTE .STK-MED ONE Stop: 12/21/20 17:47 Lactated Ringer's (Ringers, Lactated) 1,000 mls @ 75 mls/hr IV ASDIRECTED [facility] Last Admin: 12/23/20 02:37 Dose: 75 mls/hr Documented by: Cefoxitin Sodium 2 gm/ Sodium (Chloride) 50 mls @ 100 mls/hr IV Q6H [facility] Stop: 12/23/20 14:29 Last Admin: 12/23/20 13:46 Dose: 100 mls/hr Documented by: Lactated Ringer's (Ringers, Lactated) 1,000 mls @ 1,000 mls/hr IV ONETIME ONE Stop: 12/22/20 07:59 Last Admin: 12/22/20 19:48 Dose: Not Given Documented by: Magnesium Sulfate (Magnesium Sulfate In Water 2 Gm/50 Ml) 2 gm in 50 mls @ 25 mls/hr IV Q6H [facility] Stop: 12/25/20 02:59 Last Admin: 12/23/20 06:30 Dose: 50 mls/hr Documented by: Lactated Ringer's (Ringers, Lactated) 750 mls @ 750 mls/hr IV ONETIME ONE Stop: 12/22/20 08:14 Last Admin: 12/22/20 07:47 Dose: 750 mls/hr Documented by: Lactated Ringer's (Ringers, Lactated) 1,000 mls @ 100 mls/hr IV ASDIRECTED [facility] Last Admin: 12/24/20 08:34 Dose: 100 mls/hr Documented by: Lactated Ringer's (Ringers, Lactated) 1,000 mls @ 25 mls/hr IV ASDIRECTED [facility] Last Admin: 12/24/20 09:25 Dose: 25 mls/hr Documented by: Lidocaine/Epinephrine (Lidocaine 1% With Epinephrine 1:100,000 50 Ml Mdv) Confirm Administered Dose 50 ml .ROUTE .STK-MED ONE Stop: 12/21/20 11:11 Lidocaine/Epinephrine (Lidocaine 1% With Epinephrine 1:100,000 50 Ml Mdv) Confirm Administered Dose 50 ml .ROUTE .STK-MED ONE Stop: 12/23/20 07:48 Lisinopril (Lisinopril 2.5 Mg Tab) 2.5 mg PO BEDTIME [facility] Last Admin: 12/22/20 21:23 Dose: Not Given Documented by: Lisinopril (Lisinopril 5 Mg Tab) Confirm Administered Dose 5 mg .ROUTE .STK-MED ONE Stop: 12/21/20 20:48 Last Admin: 12/21/20 22:12 Dose: Not Given Documented by: Meropenem (Meropenem 500 Mg Sdv) Confirm Administered Dose 500 mg .ROUTE .STK- MED ONE Stop: 12/21/20 11:11 Last Admin: 12/21/20 14:35 Dose: 500 mg Documented by: Meropenem (Meropenem 500 Mg Sdv) Confirm Administered Dose 1,000 mg .ROUTE .STK- MED ONE Stop: 12/21/20 16:43 Meropenem (Meropenem 500 Mg Sdv) Confirm Administered Dose 500 mg .ROUTE .STK- MED ONE Stop: 12/23/20 07:48 Miscellaneous Information (Remove Scopolamine Patch) 0 ea TRDERM ONETIME ONE Stop: 12/23/20 12:01 Last Admin: 12/23/20 13:48 Dose: 1 ea Documented by: Mometasone Furoate/Formoterol Fumar (Formoterol/Mometasone 100-5 Mcg 8.8 Gm Inhaler) 2 puff IH ONETIME ONE Stop: 12/21/20 13:31 Last Admin: 12/21/20 13:06 Dose: 2 puff Documented by: Mometasone Furoate/Formoterol Fumar (Formoterol/Mometasone 100-5 Mcg 8.8 Gm Inhaler) 2 puff IH BID [facility] Last Admin: 12/21/20 22:20 Dose: Not Given Documented by: Morphine Sulfate (Morphine 2 Mg/Ml Syringe) 1 - 3 mg IVPUSH Q1H PRN PRN Reason: Pain (severe 7-10) Last Admin: 12/24/20 05:09 Dose: 3 mg Documented by: Naloxone HCl (Naloxone 0.4 Mg/Ml Sdv) 0.1 mg IVPUSH Q5M PRN PRN Reason: RESP RATE LESS THAN 6/MINUTE Last Admin: 12/21/20 23:18 Dose: 0.4 mg Documented by: Naloxone HCl (Naloxone 0.4 Mg/Ml Sdv) 0.4 mg IV ASDIRECTED PRN PRN Reason: ITCHING Neostigmine Methylsulfate (Neostigmine Methylsulfate 1 Mg/Ml 5 Ml Syringe) Confirm Administered Dose 5 mg .ROUTE .STK-MED ONE Stop: 12/21/20 09:03 Ondansetron HCl (Ondansetron 4 Mg/2 Ml Sdv) Confirm Administered Dose 4 mg .ROUTE .STK-MED ONE Stop: 12/21/20 09:03 Ondansetron HCl (Ondansetron 4 Mg/2 Ml Sdv) 4 mg IVPUSH Q4H PRN PRN Reason: Nausea Pantoprazole Sodium (Pantoprazole 40 Mg Vial) 40 mg IVPUSH Q24H [facility] Last Admin: 12/22/20 21:15 Dose: 40 mg Documented by: Propofol (Propofol 200 Mg/20 Ml Sdv) Confirm Administered Dose 200 mg .ROUTE .STK-MED ONE Stop: 12/21/20 09:03 Propofol (Propofol 200 Mg/20 Ml Sdv) Confirm Administered Dose 200 mg .ROUTE .STK-MED ONE Stop: 12/23/20 09:01 Propofol (Propofol 200 Mg/20 Ml Sdv) Confirm Administered Dose 200 mg .ROUTE .STK-MED ONE Stop: 12/23/20 09:24 Rocuronium [place] (Rocuronium 50 Mg/5 Ml Vial) Confirm Administered Dose 50 mg .ROUTE .STK-MED ONE Stop: 12/21/20 09:03 Rocuronium [place] (Rocuronium 50 Mg/5 Ml Vial) Confirm Administered Dose 50 mg .ROUTE .STK-MED ONE Stop: 12/21/20 14:15 Rocuronium [place] (Rocuronium 50 Mg/5 Ml Vial) Confirm Administered Dose 50 mg .ROUTE .STK-MED ONE Stop: 12/21/20 17:10 Scopolamine (Scopolamine 1.5 Mg Transdermal Patch) 1.5 mg TOP Q72H [facility] Stop: 12/23/20 12:00 Last Admin: 12/21/20 12:12 Dose: 1.5 mg Documented by: Succinylcholine Chloride (Succinylcholine 200 Mg/10 Ml Mdv) Confirm Administered Dose 200 mg .ROUTE .STK-MED ONE Stop: 12/21/20 09:03 - Exam Quality Assessment: Supplemental Oxygen Urinary Catheter Total Time: 2Days 1Hours General: Alert, Oriented, Cooperative, No Acute Distress Lungs: Normal Respiratory Effort, Decreased Breath Sounds (mild both bases) Cardiovascular: Regular Rate, Regular Rhythm GI/Abdominal Exam: Normal Bowel Sounds, Soft, No Distention Extremities: No Pedal Edema. No: Increased Warmth Skin: Warm, Dry Psy/Mental Status: Alert, Normal Affect - Patient Data Lab Results Last 24 hrs: Laboratory Results - last 24 hr 12/21/20 12/25/20 12/25/20 Range/Units 12:05 05:00 05:40 WBC 7.8 (4.5-11.0) K/uL RBC 3.22 L (3.30-5.50) M/uL Hgb 9.9 L D (12.0-15.0) g/dL Hct 29.9 L (36.0-48.0) % MCV 93 (80-98) fL MCH 31 (27-31) pg MCHC 33 (32-36) % Plt Count 107 L (150-400) K/uL Sodium 142 (140-148) mmol/L Potassium 4.1 (3.6-5.2) mmol/L Chloride 106 (100-108) mmol/L Carbon Dioxide 27 (21-32) mmol/L Anion Gap 9.4 (5.0-14.0) mmol/L BUN 24 H D (7-18) mg/dL Creatinine 1.4 H (0.6-1.0) mg/dL Est Cr Clr Drug Dosing 36.66 mL/min Estimated GFR (MDRD) 39 L (>60) Glucose 88 (74-106) mg/dL Calcium 9.1 (8.5-10.1) mg/dL Blood Type A POSITIVE Gel Antibody Screen Negative Crossmatch See Detail Result Diagrams: 12/25/20 05:00 12/25/20 05:40 Sepsis Event Note - Evaluation Sepsis Screening Result: No Definite Risk - Focused Exam Vital Signs: Vital Signs Temp Pulse Pulse Resp BP BP Pulse Ox 12/25/20 09:00 66 10 L 126/73 95 12/25/20 08:23 66 126/73 12/25/20 07:16 68 12/25/20 07:00 36.7 C 69 22 H 133/79 96 12/25/20 05:00 36.6 C 61 16 134/67 100 12/25/20 03:00 36.7 C 72 21 H 108/79 96 12/25/20 01:00 66 14 118/74 98 12/24/20 23:00 36.8 C 65 12 110/75 97 - My Orders Last 24 Hours: My Active Orders 12/25/20 10:06 Transfer Patient (Change bed) [ADT] Routine Convert IV to [place] [facility] [OM.PC] Routine 12/26/20 05:00 BASIC METABOLIC PANEL,BMP [CHEM] Timed CBC W/O DIFF,HEMOGRAM [HEME] Timed (1) 12/26/20 07:00 PT Evaluation and Treatment [CONS] Routine
--- NOTE | 2020-12-25 13:11 | PCM.CONSN ---
- General Info Date of Service: 12/25/20 Subjective Update: There were no acute events overnight. The patient slept well last night. She has mild to may be moderate lower abdominal pain and some perineal pain but this is much improved compared to yesterday. No significant nausea. She is passing some gas into her ostomy. Tolerating her diet so far. No fevers. She does not feel short of breath but does require 1 L of oxygen at rest. She did take a fairly long walk and did not require oxygen for the walk. Functional Status: Reports: Pain Controlled, Tolerating Diet - Patient Data Vitals - Most Recent: Last Vital Signs Temp 35.8 C L 12/25/20 10:39 Pulse 76 12/25/20 10:48 Resp 16 12/25/20 10:39 BP 128/50 L 12/25/20 10:39 Pulse Ox 96 12/25/20 10:39 Weight - Most Recent: 75.251 kg I&O - Last 24 Hours: Intake & Output 12/24/20 12/25/20 12/25/20 22:59 06:59 14:59 Intake Total 542 843 400 Output Total 450 395 150 Balance 92 448 250 Lab Results Last 24 Hours: Laboratory Results - last 24 hr 12/21/20 12/25/20 12/25/20 Range/Units 12:05 05:00 05:40 WBC 7.8 (4.5-11.0) K/uL RBC 3.22 L (3.30-5.50) M/uL Hgb 9.9 L D (12.0-15.0) g/dL Hct 29.9 L (36.0-48.0) % MCV 93 (80-98) fL MCH 31 (27-31) pg MCHC 33 (32-36) % Plt Count 107 L (150-400) K/uL Sodium 142 (140-148) mmol/L Potassium 4.1 (3.6-5.2) mmol/L Chloride 106 (100-108) mmol/L Carbon Dioxide 27 (21-32) mmol/L Anion Gap 9.4 (5.0-14.0) mmol/L BUN 24 H D (7-18) mg/dL Creatinine 1.4 H (0.6-1.0) mg/dL Est Cr Clr Drug Dosing 36.66 mL/min Estimated GFR (MDRD) 39 L (>60) Glucose 88 (74-106) mg/dL Calcium 9.1 (8.5-10.1) mg/dL Blood Type A POSITIVE Gel Antibody Screen Negative Crossmatch See Detail Med Orders - Current: Current Medications Hydrocodone Bitart/Acetaminophen (Acetaminophen/Hydrocodone 325-5 Mg Tab) 1 - 2 tab PO Q4H PRN PRN Reason: Pain (moderate 4-6) Last Admin: 12/25/20 10:25 Dose: 1 tab Documented by: Albuterol/Ipratropium (Albuterol/Ipratropium 3.0-0.5 Mg/3 Ml Neb Soln) 3 ml INH QIDRT ROBI Last Admin: 12/25/20 10:48 Dose: 3 ml Documented by: Albuterol/Ipratropium (Albuterol/Ipratropium 3.0-0.5 Mg/3 Ml Neb Soln) 3 ml INH Q4H PRN PRN Reason: BREATHING Alvimopan (Alvimopan 12 Mg Capsule) 12 mg PO Q12H ROBI Stop: 12/28/20 12:01 Last Admin: 12/25/20 12:13 Dose: 12 mg Documented by: Atorvastatin Calcium (Atorvastatin 20 Mg Tab) 80 mg PO BEDTIME ROBI Last Admin: 12/24/20 20:24 Dose: 80 mg Documented by: Cyclobenzaprine HCl (Cyclobenzaprine 10 Mg Tab) 10 mg PO Q8H PRN PRN Reason: Muscle Spasm - Painful Last Admin: 12/23/20 13:58 Dose: 10 mg Documented by: Dexamethasone (Dexamethasone 4 Mg/Ml Sdv) 10 mg IV Q4H PRN PRN Reason: Nausea/Vomiting Dronabinol (Dronabinol 2.5 Mg Cap) 2.5 mg PO BID PRN PRN Reason: Nausea/Vomiting Enoxaparin Sodium (Enoxaparin 40 Mg/0.4 Ml Syringe) 40 mg SUBCUT DAILY [facility] Last Admin: 12/25/20 08:22 Dose: 40 mg Documented by: Fentanyl (Fentanyl 100 Mcg/2 Ml Sdv) 10 - 25 mcg IVPUSH Q1H PRN PRN Reason: Pain Last Admin: 12/25/20 04:06 Dose: 20 mcg Documented by: Gabapentin (Gabapentin 300 Mg Cap) 300 mg PO TID [facility] Last Admin: 12/25/20 08:22 Dose: 300 mg Documented by: Hydroxyzine HCl (Hydroxyzine Hcl 100 Mg/2 Ml Sdv) 100 mg IM Q4H PRN PRN Reason: PAIN Last Admin: 12/21/20 20:42 Dose: 100 mg Documented by: Metoprolol Succinate (Metoprolol Succinate 25 Mg Tab.Er) 12.5 mg PO DAILY [facility] Last Admin: 12/25/20 08:23 Dose: 12.5 mg Documented by: Mometasone Furoate/Formoterol Fumar (Formoterol/Mometasone 100-5 Mcg 8.8 Gm Inhaler) 2 puff IH BIDRT [facility] Last Admin: 12/25/20 07:16 Dose: 2 puff Documented by: Nitroglycerin (Nitroglycerin 0.4 Mg Tab.Sl) 0.4 mg SL ASDIRECTED PRN PRN Reason: CHEST PAIN Ondansetron HCl (Ondansetron 4 Mg/2 Ml Sdv) 4 mg IVPUSH Q4H PRN PRN Reason: Nausea Last Admin: 12/23/20 23:22 Dose: 4 mg Documented by: Pantoprazole Sodium (Pantoprazole 40 Mg Tab.Cr) 40 mg PO BEDTIME [facility] Last Admin: 12/24/20 21:42 Dose: 40 mg Documented by: Prochlorperazine Edisylate (Prochlorperazine 10 Mg/2 Ml Sdv) 5 - 10 mg IVPUSH Q4H PRN PRN Reason: Nausea/Vomiting Last Admin: 12/24/20 01:44 Dose: 10 mg Documented by: Promethazine HCl (Promethazine 25 Mg/Ml Sdv) 12.5 - 25 mg IV Q4H PRN PRN Reason: Nausea/Vomiting Last Admin: 12/24/20 05:10 Dose: 12.5 mg Documented by: Scopolamine (Scopolamine 1.5 Mg Transdermal Patch) 1.5 mg TOP Q72H PRN PRN Reason: Nausea/Vomiting Last Admin: 12/24/20 05:10 Dose: 1.5 mg Documented by: Senna/Docusate Sodium (Docusate Sodium/Sennosides 50-8.6 Mg Tab) 2 tab PO BID [facility] Last Admin: 12/25/20 08:22 Dose: 2 tab Documented by: Trazodone HCl (Trazodone 50 Mg Tab) 50 mg PO BEDTIME [facility] Last Admin: 12/24/20 20:24 Dose: 50 mg Documented by: Discontinued Medications Albuterol/Ipratropium (Albuterol/Ipratropium 3.0-0.5 Mg/3 Ml Neb Soln) 3 ml NEB ONETIME ONE Stop: 12/21/20 13:31 Last Admin: 12/21/20 13:19 Dose: 3 ml Documented by: Alvimopan (Alvimopan 12 Mg Capsule) 12 mg PO ONETIME ONE Stop: 12/21/20 12:46 Last Admin: 12/21/20 12:12 Dose: 12 mg Documented by: Bupivacaine HCl (Bupivacaine 0.5% 50 Ml Mdv) Confirm Administered Dose 50 ml .ROUTE .STK-MED ONE Stop: 12/21/20 11:11 Bupivacaine HCl (Bupivacaine 0.5% 50 Ml Mdv) Confirm Administered Dose 50 ml .ROUTE .STK-MED ONE Stop: 12/23/20 07:48 Ropivacaine 37 ml/Dexamethasone 8 mg/Epinephrine HCl 0.4 mg/ Sodium Chloride 40. 6 ml 0 ml NERVRT ASDIRECTED [facility] Last Admin: 12/23/20 09:15 Dose: 80 syringe Documented by: Dexamethasone (Dexamethasone 4 Mg/Ml Sdv) Confirm Administered Dose 4 mg .ROUTE .STK-MED ONE Stop: 12/21/20 09:03 Diphenhydramine HCl (Diphenhydramine 50 Mg/Ml Sdv) 25 mg IVPUSH Q6H PRN PRN Reason: ITCHING Fentanyl (Fentanyl 250 Mcg/5 Ml Sdv) Confirm Administered Dose 250 mcg .ROUTE .STK-MED ONE Stop: 12/21/20 09:02 Fentanyl (Fentanyl 250 Mcg/5 Ml Sdv) Confirm Administered Dose 250 mcg .ROUTE .STK-MED ONE Stop: 12/21/20 15:58 Fentanyl (Fentanyl 100 Mcg/2 Ml Sdv) Confirm Administered Dose 100 mcg .ROUTE .STK-MED ONE Stop: 12/21/20 18:15 Fluorescein Sodium (Fluorescein 5 Ml Vial) Confirm Administered Dose 5 ml .ROUTE .STK-MED ONE Stop: 12/21/20 15:45 Furosemide (Furosemide 20 Mg/2 Ml Vial) Confirm Administered Dose 20 mg .ROUTE .STK-MED ONE Stop: 12/21/20 16:54 Furosemide (Furosemide 20 Mg/2 Ml Vial) 20 mg IVPUSH ONETIME ONE Stop: 12/24/20 12:01 Last Admin: 12/24/20 11:23 Dose: 20 mg Documented by: Gabapentin (Gabapentin 300 Mg Cap) 300 mg PO ONETIME ONE Stop: 12/21/20 12:46 Last Admin: 12/21/20 12:12 Dose: 300 mg Documented by: Glycopyrrolate (Glycopyrrolate 0.2 Mg/Ml 5 Ml Mdv) Confirm Administered Dose 1 mg .ROUTE .STK-MED ONE Stop: 12/21/20 09:03 Dextrose/Lactated Ringer's (Dextrose 5%-Lactated Ringers) 1,000 mls @ 100 mls/hr IV ASDIRECTED [facility] Last Admin: 12/23/20 02:37 Dose: 100 mls/hr Documented by: Cefoxitin Sodium 2 gm/ Sodium (Chloride) 50 mls @ 100 mls/hr IV ONETIME ONE Stop: 12/21/20 14:29 Last Admin: 12/21/20 13:15 Dose: 100 mls/hr Documented by: Fentanyl 2,500 mcg/ Sodium (Chloride) 250 mls @ 0 mls/hr EPIDUR TITRATE ROBI; Protocol Last Admin: 12/22/20 14:17 Dose: 100 mcg/hr, 10 mls/hr Documented by: Sodium Chloride (Normal Saline) Confirm Administered Dose 10 mls @ as directed .ROUTE .STK-MED ONE Stop: 12/21/20 14:03 Lactated Ringer's (Ringers, Lactated) Confirm Administered Dose 1,000 mls @ as directed .ROUTE .STK-MED ONE Stop: 12/21/20 14:42 Lactated Ringer's (Ringers, Lactated) Confirm Administered Dose 1,000 mls @ as directed .ROUTE .STK-MED ONE Stop: 12/21/20 16:34 Lactated Ringer's (Ringers, Lactated) Confirm Administered Dose 1,000 mls @ as directed .ROUTE .STK-MED ONE Stop: 12/21/20 17:47 Lactated Ringer's (Ringers, Lactated) 1,000 mls @ 75 mls/hr IV ASDIRECTED [facility] Last Admin: 12/23/20 02:37 Dose: 75 mls/hr Documented by: Cefoxitin Sodium 2 gm/ Sodium (Chloride) 50 mls @ 100 mls/hr IV Q6H [facility] Stop: 12/23/20 14:29 Last Admin: 12/23/20 13:46 Dose: 100 mls/hr Documented by: Lactated Ringer's (Ringers, Lactated) 1,000 mls @ 1,000 mls/hr IV ONETIME ONE Stop: 12/22/20 07:59 Last Admin: 12/22/20 19:48 Dose: Not Given Documented by: Magnesium Sulfate (Magnesium Sulfate In Water 2 Gm/50 Ml) 2 gm in 50 mls @ 25 mls/hr IV Q6H [facility] Stop: 12/25/20 02:59 Last Admin: 12/23/20 06:30 Dose: 50 mls/hr Documented by: Lactated Ringer's (Ringers, Lactated) 750 mls @ 750 mls/hr IV ONETIME ONE Stop: 12/22/20 08:14 Last Admin: 12/22/20 07:47 Dose: 750 mls/hr Documented by: Lactated Ringer's (Ringers, Lactated) 1,000 mls @ 100 mls/hr IV ASDIRECTED [facility] Last Admin: 12/24/20 08:34 Dose: 100 mls/hr Documented by: Lactated Ringer's (Ringers, Lactated) 1,000 mls @ 25 mls/hr IV ASDIRECTED [facility] Last Admin: 12/24/20 09:25 Dose: 25 mls/hr Documented by: Lidocaine/Epinephrine (Lidocaine 1% With Epinephrine 1:100,000 50 Ml Mdv) Confirm Administered Dose 50 ml .ROUTE .STK-MED ONE Stop: 12/21/20 11:11 Lidocaine/Epinephrine (Lidocaine 1% With Epinephrine 1:100,000 50 Ml Mdv) Confirm Administered Dose 50 ml .ROUTE .STK-MED ONE Stop: 12/23/20 07:48 Lisinopril (Lisinopril 2.5 Mg Tab) 2.5 mg PO BEDTIME [facility] Last Admin: 12/22/20 21:23 Dose: Not Given Documented by: Lisinopril (Lisinopril 5 Mg Tab) Confirm Administered Dose 5 mg .ROUTE .STK-MED ONE Stop: 12/21/20 20:48 Last Admin: 12/21/20 22:12 Dose: Not Given Documented by: Meropenem (Meropenem 500 Mg Sdv) Confirm Administered Dose 500 mg .ROUTE .STK- MED ONE Stop: 12/21/20 11:11 Last Admin: 12/21/20 14:35 Dose: 500 mg Documented by: Meropenem (Mer[place] 500 Mg Sdv) Confirm Administered Dose 1,000 mg .ROUTE .STK-MED ONE Stop: 12/21/20 16:43 Meropenem ([place]open[place] 500 Mg Sdv) Confirm Administered Dose 500 mg .ROUTE .STK- MED ONE Stop: 12/23/20 07:48 Miscellaneous Information (Remove Scopolamine Patch) 0 ea TRDERM ONETIME ONE Stop: 12/23/20 12:01 Last Admin: 12/23/20 13:48 Dose: 1 ea Documented by: Mometasone Furoate/Formoterol Fumar (Formoterol/Mometasone 100-5 Mcg 8.8 Gm Inhaler) 2 puff IH ONETIME ONE Stop: 12/21/20 13:31 Last Admin: 12/21/20 13:06 Dose: 2 puff Documented by: Mometasone Furoate/Formoterol Fumar (Formoterol/Mometasone 100-5 Mcg 8.8 Gm Inhaler) 2 puff IH BID ROBI Last Admin: 12/21/20 22:20 Dose: Not Given Documented by: Morphine Sulfate (Morphine 2 Mg/Ml Syringe) 1 - 3 mg IVPUSH Q1H PRN PRN Reason: Pain (severe 7-10) Last Admin: 12/24/20 05:09 Dose: 3 mg Documented by: Naloxone HCl (Naloxone 0.4 Mg/Ml Sdv) 0.1 mg IVPUSH Q5M PRN PRN Reason: RESP RATE LESS THAN 6/MINUTE Last Admin: 12/21/20 23:18 Dose: 0.4 mg Documented by: Naloxone HCl (Naloxone 0.4 Mg/Ml Sdv) 0.4 mg IV ASDIRECTED PRN PRN Reason: ITCHING Neostigmine Methylsulfate (Neostigmine Methylsulfate 1 Mg/Ml 5 Ml Syringe) Confirm Administered Dose 5 mg .ROUTE .STK-MED ONE Stop: 12/21/20 09:03 Ondansetron HCl (Ondansetron 4 Mg/2 Ml Sdv) Confirm Administered Dose 4 mg .ROUTE .STK-MED ONE Stop: 12/21/20 09:03 Ondansetron HCl (Ondansetron 4 Mg/2 Ml Sdv) 4 mg IVPUSH Q4H PRN PRN Reason: Nausea Pantoprazole Sodium (Pantoprazole 40 Mg Vial) 40 mg IVPUSH Q24H [facility] Last Admin: 12/22/20 21:15 Dose: 40 mg Documented by: Propofol (Propofol 200 Mg/20 Ml Sdv) Confirm Administered Dose 200 mg .ROUTE .STK-MED ONE Stop: 12/21/20 09:03 Propofol (Propofol 200 Mg/20 Ml Sdv) Confirm Administered Dose 200 mg .ROUTE .STK-MED ONE Stop: 12/23/20 09:01 Propofol (Propofol 200 Mg/20 Ml Sdv) Confirm Administered Dose 200 mg .ROUTE .STK-MED ONE Stop: 12/23/20 09:24 Rocuronium [place] (Rocuronium 50 Mg/5 Ml Vial) Confirm Administered Dose 50 mg .ROUTE .STK-MED ONE Stop: 12/21/20 09:03 Rocuronium [place] (Rocuronium 50 Mg/5 Ml Vial) Confirm Administered Dose 50 mg .ROUTE .STK-MED ONE Stop: 12/21/20 14:15 Rocuronium [place] (Rocuronium 50 Mg/5 Ml Vial) Confirm Administered Dose 50 mg .ROUTE .STK-MED ONE Stop: 12/21/20 17:10 Scopolamine (Scopolamine 1.5 Mg Transdermal Patch) 1.5 mg TOP Q72H [facility] Stop: 12/23/20 12:00 Last Admin: 12/21/20 12:12 Dose: 1.5 mg Documented by: Succinylcholine Chloride (Succinylcholine 200 Mg/10 Ml Mdv) Confirm Administered Dose 200 mg .ROUTE .STK-MED ONE Stop: 12/21/20 09:03 - Exam Quality Assessment: Supplemental Oxygen Urinary Catheter Total Time: 2Days 1Hours General: Alert, Oriented, Cooperative, No Acute Distress Neck: Supple Lungs: Clear to Auscultation, Normal Respiratory Effort, Decreased Breath Sounds (Mild both bases) Cardiovascular: Regular Rate, Regular Rhythm GI/Abdominal Exam: Normal Bowel Sounds, Soft, No Distention Extremities: Normal Inspection, No Pedal Edema. No: Increased Warmth Skin: Warm, Dry Psy/Mental Status: Alert, Normal Affect Sepsis Event Note - Evaluation Sepsis Screening Result: No Definite Risk - Focused Exam Vital Signs: Vital Signs Temp Temp Pulse Pulse Resp BP BP 12/25/20 10:48 76 12/25/20 10:39 35.8 C L 73 16 128/50 L 12/25/20 10:05 36.9 C 76 16 120/61 12/25/20 09:00 66 10 L 126/73 12/25/20 08:23 66 126/73 12/25/20 07:16 68 12/25/20 07:00 36.7 C 69 22 H 133/79 12/25/20 05:00 36.6 C 61 16 134/67 12/25/20 03:00 36.7 C 72 21 H 108/79 Pulse Ox 12/25/20 10:48 12/25/20 10:39 96 12/25/20 10:05 97 12/25/20 09:00 95 12/25/20 08:23 12/25/20 07:16 12/25/20 07:00 96 12/25/20 05:00 100 12/25/20 03:00 96 Consult PN Assessment/Plan POD#: 4 Procedures: Procedures ASSAY OF NATRIURETIC PEPTIDE (08/05/20) ASSAY OF TROPONIN QUANT (03/13/20) BLOOD TYPING SEROLOGIC ABO (12/14/20) BLOOD TYPING SEROLOGIC RH(D) (12/14/20) BONE IMAGING 3 PHASE (01/08/18) BREAST TOMOSYNTHESIS BI (06/23/20) CARCINOEMBRYONIC ANTIGEN (08/05/20) CARPAL TUNNEL SURGERY (05/29/19) COLONOSCOPY AND BIOPSY (08/05/20) COMPLETE CBC AUTOMATED (08/05/20) COMPLETE CBC W/AUTO DIFF WBC (03/13/20) COMPREHEN METABOLIC PANEL (08/05/20) CT ABD & PELV W/CONTRAST (11/22/20) CT HEAD/BRAIN W/O DYE (07/10/15) CT THORAX DX C+ (08/05/20) ELECTRICAL STIMULATION (08/19/15) ELECTROCARDIOGRAM REPORT (03/13/20) ELECTROCARDIOGRAM TRACING (03/13/20) EMERGENCY DEPT VISIT (05/10/20) EMERGENCY DEPT VISIT (07/13/18) EMERGENCY DEPT VISIT (10/24/15) EMERGENCY DEPT VISIT (07/10/15) EMERGENCY DEPT VISIT (06/28/14) EXC FOREARM OLIVIA DEEP < 3 CM (05/29/19) HOT OR COLD PACKS THERAPY (08/19/15) HYDRATE IV INFUSION ADD-ON (07/10/15) INJECT SPINE LUMBAR/SACRAL (08/11/15) MANUAL THERAPY 1/> REGIONS (10/06/15) MECHANICAL TRACTION THERAPY (10/06/15) MRI ABDOMEN W/O & W/DYE (08/10/20) MRI JOINT UPR EXTREM W/O DYE (01/16/19) MRI LOWER EXTREMITY W/O DYE (02/14/18) MRI LUMBAR SPINE W/O DYE (08/03/15) PROTHROMBIN TIME (03/13/20) PT EVALUATION (08/19/15) RBC ANTIBODY SCREEN (12/14/20) ROUTINE VENIPUNCTURE (12/14/20) SARS-COV-2 COVID-19 AMP PRB (05/10/20) SCR MAMMO BI INCL CAD (06/23/20) THER/PROPH/DIAG INJ IV PUSH (03/13/20) THER/PROPH/DIAG INJ SC/IM (10/24/15) THERAPEUTIC EXERCISES (09/21/15) THROMBOPLASTIN TIME PARTIAL (03/13/20) TISSUE EXAM BY PATHOLOGIST (08/05/20) TTE W/DOPPLER COMPLETE (05/09/20) TX/PRO/DX INJ NEW DRUG ADDON (03/13/20) ULTRASOUND THERAPY (10/06/15) X-RAY EXAM CHEST 2 VIEWS (05/10/20) X-RAY EXAM OF WRIST (07/13/18) Problem List Initiated/Reviewed/Updated: Yes My Orders Last 24 Hours: My Active Orders 12/25/20 10:06 Transfer Patient (Change bed) [ADT] Routine Convert IV to Saline Lock [OM.PC] Routine 12/26/20 05:00 BASIC METABOLIC PANEL,BMP [CHEM] Timed CBC W/O DIFF,HEMOGRAM [HEME] Timed (1) 12/26/20 07:00 PT Evaluation and Treatment [CONS] Routine Plan: ASSESSMENT AND RECOMMENDATIONS - 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 Had a delayed primary closure 12/23. Steadily improving. Pain controlled. Hemoglobin responded nicely to blood transfusion. Ostomy has started to function. -Postoperative care as per surgical team Anemia due to blood loss-hemoglobin responded nicely to blood transfusion. Vital signs have been stable. -Repeat labs in the morning Coronary artery disease-blood pressure in the normal range but on the lower side. -Continue beta-gertrude -Hold lisinopril, consider restarting in a day or 2 Hypermagnesemia- -Discontinue supplementation Elevated BNP-recent mild elevation. No impressive evidence for volume overload. -Monitor volume status Stage III chronic kidney disease-stable. Patient appears to be stable from a medical standpoint. The hospital service will sign off at this time. Please feel free to let us know if you have any specific concerns about the patient's care moving forward. Barney Harvey MD
--- NOTE | 2020-12-25 17:36 | PN ---
DATE OF SERVICE: 12/25/2020 SUBJECTIVE: The patient is doing well. Pain is well controlled. No nausea, vomiting, shortness of breath, or chest pain. OBJECTIVE: VITAL SIGNS: Stable. She is afebrile per nursing report. CARDIOVASCULAR: Regular rhythm and rate. RESPIRATORY: Lungs clear to auscultation bilaterally. Incision healing well. ASSESSMENT: Status post abdominoperineal resection. PLAN: 1. GI. The patient is having ostomy output. She continues to have a diet. She remains on Entereg. 2. Hematology. Her hemoglobin has improved and she subjectively and objectively has responded well to the blood transfusion. 3. Infectious disease. No signs of infection or any specific concerns on this subject. 4. Prophylaxis. She remains on Lovenox. Early ambulation. 5. Fluid or electrolytes. We will continue to have the hospitalist service assist with this. Pierre Bishop MD /[id number]
[2020-12-25] MEDS: Pantoprazole 40 MG Tab.CR PO SCH (21:51)
[2020-12-25] MEDS: traZODone 50 MG Tab PO SCH (21:51)
[2020-12-25] MEDS: atorvaSTATin 20 MG Tab PO SCH (21:51)
[2020-12-26] MEDS: Acetaminophen/HYDROcodone 325-5 MG Tab PO PRN ×3 (02:59→20:40)
[2020-12-26] MEDS: Albuterol/Ipratropium 3.0-0.5 MG/3 ML Neb Soln INH SCH ×4 (07:24→20:29)
[2020-12-26] MEDS: Formoterol/Mometasone 100-5 MCG 8.8 GM Inhaler IH SCH ×2 (07:24→20:32)
[2020-12-26] MEDS: Enoxaparin 40 MG/0.4 ML Syringe SUBCUT SCH (08:39)
[2020-12-26] MEDS: Gabapentin 300 MG Cap PO SCH ×3 (08:40→20:32)
[2020-12-26] MEDS: Metoprolol Succinate 25 MG Tab.ER PO SCH (08:40)
[2020-12-26] MEDS: Ondansetron 4 MG/2 ML SDV IVPUSH PRN (10:07)
[2020-12-26] MEDS ORDERED: Acetaminophen 325 MG Tab PO PRN (16:32)
--- NOTE | 2020-12-26 20:06 | PN ---
DATE OF SERVICE: 12/26/2020 SUBJECTIVE: The patient is doing well. Pain is well controlled. No nausea, vomiting, shortness of breath, or chest pain. OBJECTIVE: VITAL SIGNS: Stable. CARDIOVASCULAR: Regular rhythm and rate. RESPIRATORY: Clear to auscultation bilaterally. ASSESSMENT: Status post abdominoperineal resection. PLAN: 1. Diet. The patient is on a regular diet, doing well. Ostomy output is improving and is adequate per nursing report. 2. Infectious disease. No fever. No signs of infection. No nausea or vomiting. 3. General disposition. The patient is active, up and moving. 4. Prophylaxis. She is on Lovenox. 5. The patient will most likely be discharged in the next 24 hours. Pierre Bishop MD /[id number]
[2020-12-26] MEDS: atorvaSTATin 20 MG Tab PO SCH (20:31)
[2020-12-26] MEDS: Pantoprazole 40 MG Tab.CR PO SCH (20:32)
[2020-12-26] MEDS: traZODone 50 MG Tab PO SCH (20:32)
[2020-12-27] MEDS: Acetaminophen/HYDROcodone 325-5 MG Tab PO PRN ×2 (02:33→07:40)
[2020-12-27] MEDS: Formoterol/Mometasone 100-5 MCG 8.8 GM Inhaler IH SCH (06:58)
[2020-12-27] MEDS: Albuterol/Ipratropium 3.0-0.5 MG/3 ML Neb Soln INH SCH (06:59)
[2020-12-27 07:40] VITALS: PULSE 63
[2020-12-27] MEDS: Gabapentin 300 MG Cap PO SCH (08:56)
[2020-12-27] MEDS: Metoprolol Succinate 25 MG Tab.ER PO SCH (08:57)
[2020-12-27] MEDS: Enoxaparin 40 MG/0.4 ML Syringe SUBCUT SCH (08:57)
[2020-12-27 08:58] VITALS: BP 126/48
[2020-12-27] MEDS ORDERED: Potassium Chloride 20 MEQ Tab.ER PO SCH (09:00)
[2020-12-27] MEDS ORDERED: Witch Hazel Medicated Pads 100/Jar TOP PRN (09:11)
--- NOTE | 2020-12-27 10:55 | DISCH ---
ADMISSION DIAGNOSES: 1. Low rectal adenocarcinoma. 2. Status post preoperative chemoradiation. 3. ST-elevation myocardial infarction involving right coronary artery. 4. Stented coronary artery. 5. Cigarette nicotine dependence without complication. 6. Ischemic cardiomyopathy. 7. Essential hypertension. 8. Prediabetes. DISCHARGE DIAGNOSES: 1. Exploratory laparotomy with: a. Aberrant perineal resection. b. Total abdominal hysterectomy and bilateral salpingo-oophorectomy. c. Deserolization of omentum and Vicryl mesh to displace small bowel from pelvis. d. Repair of incarcerated umbilical hernia. e. Postoperative Diagnoses: I. Low rectal carcinoma. II.Large fibroid uterus. III. Incarcerated umbilical hernia. f. Date of procedure 12/21/2020. 2. Delayed primary closure for open abdominal incision. a. Date of procedure 12/23/2020. b. Surgeon: Pierre Bishop MD. HISTORY: Carey Correa is a 52-year-old female who has low rectal adenocarcinoma. She underwent chemotherapy and radiation and is followed by Dr. Osborne through [facility]. She has stage II-IIIB N0, M0 rectal cancer. She had preoperative treatment as stated with radiation and chemotherapy, and after preoperative evaluation, discussion of possible risks and possible complications, she wished to proceed with surgical procedure. HOSPITAL COURSE: Carey had her surgery on 12/21/2020. She had no operative complications. On postoperative day 1, pain was well managed. She was in ICU for close cardiac monitoring due to her recent history. On 12/23/2020, she had delayed primary closure. After her delayed primary closure, her [place] was discontinued, and she was started on oral pain medications. She did receive throughout her hospitalization 2 units of packed red blood cells and 1 fresh frozen plasma on 12/24/2020 for a hemoglobin of 7. Vital signs remained stable, and she started having output out of her colostomy. Carey was given colostomy teaching. On 12/26/2020, she had 450 out total of her colostomy and on 12/27/2020 day of discharge, early a.m., she had 145 mL. LABORATORY DATA: Hemoglobin on discharge 10.1. Potassium was 3.4. She will be given some oral potassium prior to discharge. Carey was able to be discharged to home. Activity good. Pain is controlled. Vital signs stable and she received colostomy teaching. Carey is ready to be discharged to home with home health care. PHYSICAL EXAMINATION: GENERAL: Carey Correa is a pleasant 55-year-old female. VITAL SIGNS: Height 5 feet 2.99 inches. Weight is 165 pounds. TPR 95.6, 63, and 16. Blood pressure 126/78. HEENT: Negative. NECK: Supple. HEART: Regular rate and rhythm. LUNGS: Clear. ABDOMEN: She has stapled incision, which Aquacel was removed. It looks good. Colostomy stoma has a thin film over, looks pink at center. ABDOMEN: Soft and normally tender, which will be expected after postop. EXTREMITIES: Without peripheral edema. DISPOSITION: Discharged to home with home health care. CONDITION: Good. FOLLOWUP APPOINTMENTS: With Victoriano Castillo MD at [facility] on 12/28/2020 at 10 a.m. HOME MEDICATIONS: [place] 5/325 mg 1 to 2 p.o. q.4 hours p.r.n. #20. She is to resume home medications of Advair 100-50 one inhalation b.i.d., albuterol inhaler 1 to 2 puffs q.4 hours p.r.n., aspirin 81 mg p.o. daily, gabapentin 300 mg p.o. t.i.d., trazodone 50 mg p.o. bedtime, Lipitor 80 mg p.o. bedtime, nitroglycerin 0.4 mg sublingual as directed p.r.n., Cleocin T 1% one applicator topical b.i.d., Vitron-C 1 b.i.d., Pepcid 40 mg p.o. daily, vitamin D3 at 5000 units p.o. daily, Detrol XL 2 mg p.o. daily, Brilinta 90 mg p.o. b.i.d., Compazine 10 mg p.o. q.6 hours p.r.n. nausea, Zofran 4 mg q.8 hours p.r.n. nausea, Prinivil 2.5 mg p.o. at bedtime, tizanidine 4 mg p.o. t.i.d. p.r.n. muscle spasms, metoprolol succinate, Toprol-XL 12.5 mg p.o. daily, and Tylenol 650 mg q.4 hours p.r.n. pain and to watch dosage with the [employer]. DIET: Regular diet as tolerated. Drink 8 to 10 glasses of water a day. ACTIVITY: Walk 6 times daily inside your home. No lifting greater than 10 pounds for 6 weeks. DRIVING: Do not drive for 1 week. SHOWER/BATHING: May shower. WOUND INCISION CARE: Keep operative site clean and dry. Wear abdominal binder as tolerated. Notify provider if any fever, increased pain, swelling, redness, drainage, nausea, or vomiting. SPECIAL INSTRUCTIONS: Use incentive spirometer 10 times every hour while awake for 1 week. Call Surgery Department at [facility] from 8 to 4 p.m. at [phone] or hospital after clinic hours at [phone] and ask for a nurse on second floor. Referral written for [facility] colostomy teaching. Carey is a patient at [facility]. Prescription written for colostomy supplies. /[id number]
--- NOTE | 2020-12-31 15:37 | PN ---
DATE OF SERVICE: 12/22/2020 The patient has been afebrile with stable vital signs. Urine output has just been , and the creatinine did bump up somewhat overnight to 1.7 from around 0.8 preoperatively. Otherwise, she is alert, somewhat thirsty. BNP is fairly low at 146 somewhat dry. We will give her an LR bolus at this point and then continue as an IV rate around 175 total for now. We will plan to proceed with delayed primary closure tomorrow. The colostomy is edematous, but otherwise appeared to be viable. Magnesium level will be supplemented. Otherwise, we will begin a clear liquid diet and some Ensure Clear today, and maximize activity, and work with pulmonary toilet. Victoriano Castillo MD /[id number]
--- NOTE | 2021-01-02 13:30 | OR ---
DATE OF PROCEDURE: 12/21/2020 SURGEON: Victoriano Castillo MD PREOPERATIVE DIAGNOSES: 1. Very low lying rectal adenocarcinoma. 2. Very enlarged uterus, likely secondary to large uterine fibroids. POSTOPERATIVE DIAGNOSES: 1. Very low lying rectal adenocarcinoma. 2. Very enlarged uterus, likely secondary to large uterine fibroids. 3. Incarcerated umbilical hernia. OPERATIVE PROCEDURES: Exploratory laparotomy with: 1. Abdominal peritoneal resection (48984). 2. Total abdominal hysterectomy with bilateral salpingo-oophorectomy (09139). 3. Formation of omental pedicle graft and placement of a Vicryl mesh to reduce pelvic space and displace the small bowel from the pelvis (47619). 4. Repair of an incarcerated umbilical hernia (24329). ANESTHESIA: General plus epidural. FAT PRESSROOM WORKER: Elena Cash PA-C INDICATIONS FOR PROCEDURE: This is a 55-year-old female presenting recently with rectal bleeding and found to have very low rectal adenocarcinoma. The pretreatment statement showed it to be beyond the muscularis propria and more or less abutting the external sphincter, i.e., coming extremely close to and perhaps invading the squamocolumnar junction and the lower rectum and the anal area. The patient has undergone preoperative chemoradiation treatment. A followup MRI of the pelvis and abdomen done in the last few days shows what appeared to be persistent tumor remaining outside of the muscularis propria and abutting the pubococcygeus muscle at the 6 to 7 o'clock position. Otherwise, there appears to be no evidence of significant lymphadenopathy and no evidence of otherwise distant metastatic disease. Given the likely persistence of the tumor and its low nature and the original location of the tumor being essentially down in the area of the external sphincter, an abdominal peritoneal resection appears to still be recommended. The patient is aware there is some possibility that there has been a complete pathologic response but is impossible to determine short of resection at this point, and there is a high risk of local recurrence should surgical resection be omitted, particularly given the current MRI findings. Otherwise, potential risks of the procedure, including bleeding, infection, leaks from any GI tract closures, injury to the viscera in the area, and injury to the ureters, bladder, or vaginal wall as well as the nerves in the vicinity, were all reviewed along with the possibility of problems of healing related to perineal hernias and such, and she wishes to proceed. The patient had a cardiac arrest due to coronary artery disease last February and had stent placements at that time and has been cardiologically quite stable, has an ejection fraction of over 50% presently and [facility] the [facility] has been cleared to go off the Brilinta and aspirin for the perioperative course. OPERATIVE FINDINGS: At Denonvilliers' fascia, there is essentially no soft tissue between the perirectal fascia and the Denonvilliers' fascia, giving the appearance of perhaps an incomplete mesorectal resection at that level, but again, there is essentially no soft tissue between those two. The final attachment between the perirectal fascia and the vaginal wall at that point was divided with a BROOKS stapler so as to avoid entering the wrong plane, either anteriorly or posteriorly. Posteriorly, in the area of the tumor, an extralevator approach was maintained and at no point did we approach what appeared to be any palpable or visible tumor or residual scar related to the possible tumor regression at the plane of dissection. No significant lymphadenopathy was noted at any point in any portion of this dissection as well. At the conclusion of the procedure, fluorescein was given intravenously, and good flow was noted into the bladder, and the course of the ureters on each side was traced down through the pelvis and into the bladder, and these appeared to be nicely intact. DETAILS OF PROCEDURE: The patient was taken to the operating room after general endotracheal anesthesia was induced, an epidural catheter was then placed. Epidural catheter infusion was initiated. A Purcell catheter was placed and the patient placed in a lithotomy position. In the preoperative area, the site for the colostomy had been marked in supine, sitting, and standing position to allow optimal location for the ostomy. The abdomen and peritoneal areas were prepped and draped after a pursestring stitch of 2-0 Prolene stitch had been placed across the anal opening to prevent any spill of fecal contents during the course of the procedure. A midline incision, which extended from 3 fingerbreadths above the umbilicus down towards the pelvis, was made and carried down through the full-thickness abdominal wall. The patient was noted to have an umbilical hernia, which contained incarcerated preperitoneal fat. This was initially reduced and closed at the time of the primary fascial closure. At this point, the distal-most sigmoid colon was divided with a BROOKS stapler. The peritoneal edges of the rectosigmoid mesentery divided both on the right and left sides. This then allowed dissection down towards the origin of the superior femoral artery, which along with the vein was then divided. This then allowed dissection behind the rectum into the retrorectus space. This plane was well-defined and easily dissected. This then allowed elevation of the lateral stalks of the rectum away from the course of the ureter, and these were then divided with a series of BROOKS yusef. At this point, the uterus, which was roughly the size of a softball, was addressed by means of a hysterectomy. The infundibulopelvic, broad, and round ligaments were divided with BROOKS yusef on each side and the peritoneum over the distal cervix then incised. This allowed dissection of the soft tissues away from the distal surface and onto the upper vagina. The uterosacral ligaments were then divided with BROOKS black loads. This then allowed narrowing of the vaginal lumen at a point just below the cervix such that a BROOKS black load could be used to divide that, and the TAHBSO specimen was then delivered from the field grossly. The said uterus appeared to be enlarged primarily by large fibroids. This then allowed dissection beginning anteriorly between the vagina and the rectum. As mentioned above, as one came down towards the lower vagina, there was a continued fairly easy dissection plane. There was essentially no soft tissue between the rectal fascia and Denonvilliers' fascia, and the midline raphe was finally present, which was fairly rigid, likely related to some radiation changes, and so as to avoid entering the incorrect plane, this was divided with the BROOKS stapler. At this point then, the dissection involved into the extralevator plane. This was easily established and carried down to the pelvic floor, where the musculature was then divided. At that point, an elliptical incision beginning at the perineal body and inferiorly along the sides of the rectum and down to the level of the anterior to the coccyx was made, and the soft tissues, including the skin and subcutaneous tissue, and the underlying musculature were divided, again dividing the levator muscles so there was a large amount of muscular tissue typical for an extralevator dissection circumferentially at the base of the specimen. This would clearly provide a good margin away from either the tumor or residual scar following tumor remission with preoperative chemoradiation treatment and the radial margin of the specimen. The specimen consisting of the abdominal peritoneal resection was then delivered from the field. At this point, the area was washed out with 10 L of meropenem-containing saline solution. The upper abdomen was once again addressed. The patient was quite obese, and we initially fashioned the ostomy in a location to the left of and slightly superior to the umbilicus, where it had been measured out preoperatively, and some additional sigmoid colon was then resected once we established how much of that was needed to fashion a colostomy, and this then did result in some additional lymph nodes being removed, which would include the branches of the superior hemorrhoidal vessels. A disk of skin was removed and the underlying soft tissue incised and . A vertical incision in the rectus fascia was then accomplished, and this was broadened to a point where it would allow the sigmoid colon to come up, and then, the peritoneum was similarly divided slightly to the lateral aspect of that, creating somewhat of an angled course of the abdominal wall to try to limit the postoperative pericolostomy hernia formation. Once the sigmoid colon was pulled through, it appeared to be well vascularized, and the sigmoid colon was attached to the peritoneum from within with some 3-0 Vicryl seromuscular stitches and then to the fascia with some 3-0 Vicryl stitches, and at that point, the maturation of the colostomy would wait until the conclusion of the abdominal portion of the procedure. Good hemostasis was noted in the pelvis at this point. Using a #1 Vicryl stitch in a running manner, 2 muscular layers of closure were accomplished at the pelvic and peritoneal level. The subcutaneous tissue was approximated with some 3-0 Vicryl stitch and the skin with yusef. At this point, a well-vascularized omental pedicle flap was fashioned with division of the right side of the omentum away from the vascular attachments at that level and across the transverse colon and then bringing the omentum down into the pelvis based on the left gastrocolic vessels. The entire pedicle flap appeared to be very well vascularized at this point. At this point, some fibrin sealant was placed across the of the coccyx to minimize any postoperative venous oozing from that area. Two Richard-North drains were then placed through stab wounds in the right mid abdomen and taken down into the pelvis, and over that, then the omental pedicle flap was placed in the pelvis and then finally over the top of that some Vicryl mesh to further maintain displacement of the small bowel away from the pelvis with the Vicryl mesh being sutured with some 3-0 Vicryl stitch more or less along the pelvic inlet circumferentially. Prior to that, the abdomen was irrigated with some additional meropenem-containing saline solution. At this point, no further problems were noted. The small bowel was then brought back into the area more or less at the level of the pelvic inlet but appeared to be well protected from entering the pelvis deeper than that. From the line inferiorly, the posterior peritoneum was approximated with a #2 Vicryl stitch and then the anterior fascia closed with a #2 Vicryl stitch as well, which included repair of the umbilical hernia. The skin and subcutaneous tissue were felt to be at high risk for wound infection if a primary closure was undertaken and given this, it was packed open with Iodoform gauze for planned delayed primary closure in 48 hours. There were no evident complications. The patient was taken to the recovery room in satisfactory condition. Physician [employer] assistant football coach Elena Cash played an essential role in assisting in this case, helping to position the patient and retract structures as needed as well as suturing and cutting sutures when indicated. Her presence improved patient safety and decreased operative time. Victoriano Castillo MD /[id number]
== END 2020-12-27 10:10 | disposition home health service (06) | DRG 330 ==
LOC: JP.SDS 11:46 → JP.ICU 19:23 → JP.MS 12-25 10:29
PROVIDERS: ADMIT Surgery; ATTEND Surgery
PROC: 0DBN0ZZ Excision of Sigmoid Colon, Open Approach (ICD-10-PCS; 2020-12-21)
PROC: 0UT90ZZ Resection of Uterus, Open Approach (ICD-10-PCS; 2020-12-21)
PROC: 0UT70ZZ Resection of Bilateral Fallopian Tubes, Open Approach (ICD-10-PCS; 2020-12-21)
PROC: 0UT20ZZ Resection of Bilateral Ovaries, Open Approach (ICD-10-PCS; 2020-12-21)
PROC: 0UTG0ZZ Resection of Vagina, Open Approach (ICD-10-PCS; 2020-12-21)
PROC: 0DTP0ZZ Resection of Rectum, Open Approach (ICD-10-PCS; 2020-12-21)
PROC: 0DBW0ZZ Excision of Peritoneum, Open Approach (ICD-10-PCS; 2020-12-21)
PROC: 0WQF0ZZ Repair Abdominal Wall, Open Approach (ICD-10-PCS; 2020-12-21)
PROC: 0WQF0ZZ Repair Abdominal Wall, Open Approach (ICD-10-PCS; 2020-12-23)
PROC: 30233N1 Transfusion of Nonautologous Red Blood Cells into Peripheral Vein, Percutaneous Approach (ICD-10-PCS; principal; 2020-12-24)
PROC: 30233K1 Transfusion of Nonautologous Frozen Plasma into Peripheral Vein, Percutaneous Approach (ICD-10-PCS; 2020-12-24)
DX: C20 Malignant neoplasm of rectum (principal); K42.0 Umbilical hernia with obstruction, without gangrene; D25.9 Leiomyoma of uterus, unspecified; I25.10 Atherosclerotic heart disease of native coronary artery without angina pectoris; N18.30 Chronic kidney disease, stage 3 unspecified; E83.41 Hypermagnesemia; E78.00 Pure hypercholesterolemia, unspecified; I12.9 Hypertensive chronic kidney disease with stage 1 through stage 4 chronic kidney disease, or unspecified chronic kidney disease; K21.9 Gastro-esophageal reflux disease without esophagitis; M54.9 Dorsalgia, unspecified; G89.29 Other chronic pain; E66.9 Obesity, unspecified; J44.9 Chronic obstructive pulmonary disease, unspecified; F17.210 Nicotine dependence, cigarettes, uncomplicated; I25.5 Ischemic cardiomyopathy; R73.03 Prediabetes; D50.0 Iron deficiency anemia secondary to blood loss (chronic); Z91.048 Other nonmedicinal substance allergy status; Z79.82 Long term (current) use of aspirin; Z79.899 Other long term (current) drug therapy; I25.2 Old myocardial infarction; Z95.5 Presence of coronary angioplasty implant and graft; Z68.29 Body mass index [BMI] 29.0-29.9, adult
CPT/HCPCS: 36415; 36430; 80048; 80053; 83735; 83880; 84100; 85027; 86850; 86900; 86901; 86920; 86922; 88302; 88304; 88307; 88309; 94640; 97162-GP; 97530-GP; A9270-GY; C1781; C9113; J0171; J0330; J0694; J0780; J1100; J1650; J1940; J2185; J2270; J2310; J2405; J2550; J2704; J2710; J2795; J3010; J3410; J3475; J3490; J7050; J7120; J7121; J7620-GY; P9016; P9017

== ENCOUNTER 2021-03-09 07:18 | Day surgery (SDC) | payer MEDICAID ==
[~2021-03-09 07:18] MED LIST changes: -Albuterol/Ipratropium 3.0-0.5 MG/3 ML Neb Soln NEB ONE; -Dexamethasone 4 MG/ML SDV ONE; -Dextrose 5%-Lactated Ringers 1,000 ML IV SCH; -Gabapentin 300 MG Cap PO ONE; -Glycopyrrolate 0.2 MG/ML 5 ML MDV ONE; -Meropenem 500 MG SDV ONE; -Naloxone 0.4 MG/ML SDV IVPUSH PRN; -Neostigmine Methylsulfate 1 MG/ML 5 ML Syringe ONE; -Ondansetron 4 MG/2 ML SDV ONE; -Propofol 200 MG/20 ML SDV ONE; -Rocuronium 50 MG/5 ML Vial ONE; -Scopolamine 1.5 MG Transdermal Patch TOP ONE; -Succinylcholine 200 MG/10 ML MDV ONE; -cefOXitin 2 GM in Sodium Chloride 0.9% 50 ML IV ONE; -fentaNYL 2,500 MCG in Sodium Chloride 0.9% 200 ML EPIDUR SCH; -fentaNYL 250 MCG/5 ML SDV ONE
[2021-03-09] MEDS ORDERED: Midazolam 1 MG/ML 2 ML SDV ONE (08:23)
[2021-03-09] MEDS ORDERED: Propofol 200 MG/20 ML SDV ONE ×2 (08:23→10:49)
[2021-03-09] MEDS ORDERED: fentaNYL 100 MCG/2 ML SDV ONE (08:23)
[2021-03-09] MEDS ORDERED: Dextrose 5%-Lactated Ringers 1,000 ML IV SCH (08:30)
[2021-03-09] MEDS ORDERED: Albuterol/Ipratropium 3.0-0.5 MG/3 ML Neb Soln NEB ONE (08:30)
[2021-03-09] MEDS ORDERED: Acetaminophen 500 MG Tab PO ONE (08:30)
[2021-03-09] MEDS ORDERED: Clindamycin Phosphate 900 MG in Sodium Chloride 0.9% 100 ML IV ONE (08:45)
[2021-03-09 12:30] VITALS: BP 114/73; PULSE 62
--- NOTE | 2021-03-10 15:16 | OR ---
DATE OF PROCEDURE: 03/09/2021 SURGEON: Victoriano Castillo MD PREOPERATIVE DIAGNOSIS: Indications for central venous access. POSTOPERATIVE DIAGNOSIS: Indications for central venous access. OPERATIVE PROCEDURE: Placement of Bard PowerPort via left subclavian vein approach (22097). ANESTHESIA: Local plus IV sedation. INDICATION FOR PROCEDURE: This is a 56-year-old status post abdominoperineal resection for a low rectal adenocarcinoma. She had preoperative neoadjuvant chemotherapy and now has a healed perineal wound and is to undergo some additional chemotherapy to facilitate the Bard port as requested per Medical Oncology. Potential risks of the procedure including bleeding, infection, injury to the vasculature and/or lung problems with the port becoming infected or occluded were all reviewed, and the patient wishes to proceed. DETAILS OF PROCEDURE: The patient was taken to the operating room and placed in a supine position. After IV sedation was administered, the upper chest and neck areas were prepped and draped, and anesthetized with 1% lidocaine mixed with Marcaine. The left subclavian vein was cannulated and the guidewire manipulated from there into the superior vena cava. Some additional local was then injected and transverse infraclavicular incision was made and carried down through the skin and subcutaneous tissue and pectoralis major fascia. In that plane, a port pocket was bluntly created. Bard port was then assembled and flushed with heparinized saline, and the port placed into the pocket, where it seem to fit nicely. The catheter was cut such that the tip would lie in the area of the superior vena cava, right atrial junction, and over the introducer and peel-away catheter, the Bard port catheter was placed. Good in and outflow was noted. Ports were flushed with heparinized saline once again. The incision was closed with 3-0 and 4-0 Vicryl stitch deep and 4-0 Vicryl subcuticular stitch. The patient is planning to get chemotherapy tomorrow certainly. The port was remained accessed to facilitate that treatment tomorrow. There were no evident complications. Victoriano Castillo MD /[id number]
== END 2021-03-09 12:48 | disposition home or self-care (01) ==
LOC: JP.SDS 07:18
PROVIDERS: ATTEND Surgery
DX: C20 Malignant neoplasm of rectum (principal); E66.9 Obesity, unspecified; F17.200 Nicotine dependence, unspecified, uncomplicated
CPT/HCPCS: 36561; 94640; A9270; J1642; J2020; J2250; J2704; J3010; J3490; J7121; C1788; J7620-GY

== ENCOUNTER 2022-06-19 07:32 | Day surgery (SDC) | payer MEDICAID ==
[~2022-06-19 07:32] MED LIST changes: -Bupivacaine 0.5% 50 ML MDV ONE; -Lidocaine 1% with EPINEPHrine 1:100,000 50 ML MDV ONE; +Midazolam 1 MG/ML 2 ML SDV ONE; +Propofol 200 MG/20 ML SDV ONE; +fentaNYL 100 MCG/2 ML SDV ONE
[2022-06-19] MEDS ORDERED: Dextrose 5%-Lactated Ringers 1,000 ML IV SCH (08:00)
[2022-06-19] MEDS ORDERED: Ondansetron 4 MG/2 ML SDV IVPUSH ONE (08:10)
[2022-06-19 10:30] VITALS: BP 113/60; PULSE 62
== END 2022-06-19 10:30 | disposition home or self-care (01) ==
LOC: JP.SDS 07:32
PROVIDERS: ATTEND Surgery
DX: Z12.11 Encounter for screening for malignant neoplasm of colon (principal); K57.30 Diverticulosis of large intestine without perforation or abscess without bleeding; I10 Essential (primary) hypertension; E78.5 Hyperlipidemia, unspecified; I25.10 Atherosclerotic heart disease of native coronary artery without angina pectoris; E66.9 Obesity, unspecified; Z68.34 Body mass index [BMI] 34.0-34.9, adult; Z85.048 Personal history of other malignant neoplasm of rectum, rectosigmoid junction, and anus; Z91.048 Other nonmedicinal substance allergy status; Z79.899 Other long term (current) drug therapy; Z95.5 Presence of coronary angioplasty implant and graft
CPT/HCPCS: 44388; J1642; J2250; J2405; J2704; J3010; J7121; C1751

== ENCOUNTER 2024-12-14 14:44 | Emergency (ER) | payer MEDICARE ==
[2024-12-14 16:10] LABS: BASOPHILS ABSOLUTE AUTO 0.03 K/uL (0.00-0.10); BASOPHILS PERCENT AUTO 0.4 % (0.1-1.3); EOSINOPHILS ABSOLUTE AUTO 0.11 K/uL (0.00-0.40); EOSINOPHILS PERCENT AUTO 1.4 % (0.0-5.4); HEMOGLOBIN 14.1 g/dL (11.2-15.5); IMMATURE GRAN ABSOLUTE AUTO 0.04 K/uL (0.00-0.23); IMMATURE GRAN PERCENT AUTO 0.5 % (0.0-0.7); LYMPHOCYTES ABSOLUTE AUTO 1.45 K/uL (0.8-3.3); LYMPHOCYTES PERCENT AUTO 17.8 % (11.4-47.7); MEAN CORPUSCULAR HEMOGLOBIN 31.1 pg (31.6-35.5); MEAN CORPUSCULAR HGB CONC 34.4 g/dL (31.6-35.5); MEAN CORPUSCULAR VOLUME 90.5 fL (81.4-99.0); MONOCYTES ABSOLUTE AUTO 0.57 K/uL (0.20-0.90); NEUTROPHILS ABSOLUTE AUTO 5.93 K/uL (1.0-7.6); NEUTROPHILS PERCENT AUTO 72.9 % (40.0-78.1); PLATELET COUNT,PLT 187 K/uL (130-375); RED BLOOD CELL COUNT 4.53 M/uL (3.77-5.24); WHITE BLOOD CELL COUNT,WBC 8.1 K/uL (3.2-11.0)
[2024-12-14 16:32] LABS: ALANINE AMINOTRANSFERASE,ALT 34 U/L (12-78); ALBUMIN 3.5 g/dL (3.4-5.0); ALKALINE PHOSPHATASE 80 U/L (46-116); ANION GAP 12.3 mmol/L (5.0-14.0); ASPARTATE AMNIOTRANSFERASE,AST 15 U/L (15-37); BILIRUBIN TOTAL 0.6 mg/dL (0.2-1.0); BLOOD UREA NITROGEN,BUN 13 mg/dL (7-18); C-REACTIVE PROTEIN < 0.50 mg/dL (<0.50); CARBON DIOXIDE,CO2 25 mmol/L (21-32); CHLORIDE,CL 106 mmol/L (100-108); CREATININE 0.7 mg/dL (0.6-1.0); EST CRCL DRUG DOSING (CG) 66.75 mL/min; ESTIMATED GFR 98 mL/min (>60); GLUCOSE RANDOM 105 mg/dL (74-106); POTASSIUM,K 3.8 mmol/L (3.6-5.2); PROTEIN TOTAL,TP 7.1 g/dL (6.4-8.2); SODIUM,NA 143 mmol/L (140-148)
[2024-12-14 16:37] LABS: LACTIC ACID 0.9 mmol/L (0.4-2.0)
[2024-12-14] MEDS: Sodium Chloride 0.9% 80 ML IV SCH (17:32)
[2024-12-14] MEDS: Iopamidol 612 MG/ML 100 ML Bottle IV SCH (17:32)
[2024-12-14] MEDS: Sodium Chloride 0.9% 10 ML Syringe FLUSH PRN (17:33)
[2024-12-14 18:27] VITALS: BP 128/76; PULSE 65
== END 2024-12-14 18:27 | disposition home or self-care (01) ==
LOC: JP.ED 14:44
DX: K59.00 Constipation, unspecified (principal); I10 Essential (primary) hypertension; E78.00 Pure hypercholesterolemia, unspecified; K21.9 Gastro-esophageal reflux disease without esophagitis; E66.9 Obesity, unspecified; Z68.33 Body mass index [BMI] 33.0-33.9, adult; Z79.899 Other long term (current) drug therapy; Z79.82 Long term (current) use of aspirin; Z88.8 Allergy status to other drugs, medicaments and biological substances; Z91.048 Other nonmedicinal substance allergy status
CPT/HCPCS: 36415; 74177; 80053; 83605; 85025; 86140; 99284; C1751; Q9967

== ENCOUNTER 2024-12-16 07:09 | Day surgery (SDC) | payer MEDICARE ==
[~2024-12-16 07:09] MED LIST changes: -Midazolam 1 MG/ML 2 ML SDV ONE; -fentaNYL 100 MCG/2 ML SDV ONE; +fentaNYL 50 MCG/ML SDV ONE
[2024-12-16] MEDS: Lactated Ringers 1,000 ML IV SCH (08:06)
[2024-12-16 09:52] VITALS: BP 146/69; PULSE 48
== END 2024-12-16 10:00 | disposition home or self-care (01) ==
LOC: JP.SDS 07:09
PROVIDERS: ATTEND Surgery
DX: R13.10 Dysphagia, unspecified (principal); K31.89 Other diseases of stomach and duodenum; I25.10 Atherosclerotic heart disease of native coronary artery without angina pectoris; F17.200 Nicotine dependence, unspecified, uncomplicated
CPT/HCPCS: 00731; 43239; 88305; J2704; J3010; J7120

== ENCOUNTER 2025-05-05 06:31 | Day surgery (SDC) | payer MEDICARE ==
[2025-05-05] MEDS ORDERED: fentaNYL 50 MCG/ML SDV ONE (07:04)
[2025-05-05] MEDS ORDERED: Propofol 200 MG/20 ML SDV ONE (07:04)
[2025-05-05] MEDS: Lactated Ringers 1,000 ML IV SCH (07:12)
[2025-05-05] MEDS: Sodium Chloride 0.9% 10 ML Syringe FLUSH ONE (08:54)
[2025-05-05 09:18] VITALS: BP 147/74; PULSE 50
== END 2025-05-05 09:02 | disposition home or self-care (01) ==
LOC: JP.SDS 06:31
PROVIDERS: ATTEND Surgery
DX: C18.9 Malignant neoplasm of colon, unspecified (principal); E78.00 Pure hypercholesterolemia, unspecified; I10 Essential (primary) hypertension; K21.9 Gastro-esophageal reflux disease without esophagitis; F17.210 Nicotine dependence, cigarettes, uncomplicated; Z88.6 Allergy status to analgesic agent; Z79.899 Other long term (current) drug therapy
CPT/HCPCS: 00811; 44388; J2704; J3010; J7120